=== PATIENT | female | born 1940 | race Caucasian/White ===

== ENCOUNTER 2016-11-08 22:31 | Emergency (ER) | payer OTHER, BC ==
[~2016-11-08] VITALS: Ht 165.1 cm; Wt 104.5 kg
[~2016-11-08 22:31] MED LIST: ACTOS30 MG PO; ALEVE LIQUID G220 MG PO; ALEVE220 MG PO; AMLODIPINE BESYL5 MG PO; ASPIR 8181 M1 PO; ASPIR-LOW81 MG PO; ASPIRIN81 M1 PO; Apresoline PO; Aspirin E.C. PO; BACTRIM,SEPT1 TABLET PO; CARVEDILOL3.125 MG PO; CIPRO XR 500 M500 M1 PO; CLEOCIN300 MG PO; COLACE100 MG PO; Colace PO; ELIQUIS5 MG PO; ENDOCET 5-3251 EACH PO; ERGOCALCIF50000 UNIT PO; HUMULIN N100 UNITS/ SC; HUMULIN NP100 UNIT/1 SC; HYDRALAZINE HCL50 MG PO; KEFLEX500 MG PO; LASIX40 MG PO; LISINOPRIL-HCT1 EAC3 PO; LISINOPRIL10 MG PO; LISINOPRIL5 MG PO; Levaquin PO; METFORMIN HCL500 MG PO; OXYCODONE-ACET1 EACH PO; PROMETHAZINE HC25 M1 PO; Silvadene,SSD,Therma TP; Tylenol Regular Stre PO; Vicodin,Norco 5/325 PO; Vitamin D PO; Vitamin D, Drisdol PO; ZESTORETIC,P1 TABLE1 PO; ZOCOR20 MG PO; ZYVOX600 MG PO; Zocor PO
[2016-11-09] LABS: HEMATOCRIT 38.5 % (36.0-46.0); MCH 27.9 PG (29.0-34.0); MCHC 31.7 G/DL (30.0-36.0); MCV 87.9 FL (83-99); MEAN PLAT.VOLUME 12.3 uM^3 (9.5-12.4); PLATELET COUNT 88 K/uL (156-360); RBC DIS.WIDTH-SD 44.8 % (39-53); RED BLOOD COUNT 4.38 M/uL (3.80-5.20); WHITE BLOOD COUNT 7.5 K/uL (4.1-10.2)
[2016-11-09 00:10] LABS: CHLORIDE 105 mEq/L (99-109); POTASSIUM 4.1 mEq/L (3.7-5.4); SODIUM 136 mEq/L (136-147)
[2016-11-09 00:12] LABS: GLUCOSE 259 mg/dL (70-99)
[2016-11-09 00:13] LABS: ANION GAP 10 MEQ/L (2-14)
[2016-11-09 00:14] LABS: TOTAL BILIRUBIN 1.4 mg/dL (0.0-1.0)
[2016-11-09 00:16] LABS: ALKALINE PHOSPHATASE 129 IU/L (3-129); GFR ESTIMATE (CALCULATED) 31 mL/min/
[2016-11-09 00:17] LABS: UREA NITROGEN (BUN) 24 mg/dL (9-23)
[2016-11-09 01:16] LABS: ADD MIUA? YES; BILIRUBIN NEGATIVE; BLOOD LARGE; COLOR YELLOW ((YELLOW)); GLUCOSE (STRIP) >=500; KETONES NEGATIVE; LEUKOCYTES LARGE; NITRITE NEGATIVE; PROTEIN (STRIP) 100; UROBILINOGEN 0.2 MG/DL (0.2-1.0)
[2016-11-09 01:34] LABS: BACTERIA RARE /HPF; EPITHELIAL CELLS NONE SEEN /HPF; MUCUS NONE SEEN /LPF; UCUL ADDED? YES; WHITE BLOOD CELLS TNTC /HPF (0-5)
[2016-11-09] MEDS ORDERED: ZOFRAN4 MG PO (02:46)
[2016-11-09] MEDS ORDERED: LEVAQUIN750 MG PO (02:46)
[2016-11-09] MEDS ORDERED: PERCOCET 5/31 TABLET PO (02:47)
[2016-11-09 03:43] VITALS: BP 164/83
[2016-11-10] MEDS ORDERED: HYDROXYCHLOROQ200 MG PO (00:35)
[2016-11-10] MEDS ORDERED: ALLEGRA-D 241 TABLET PO (00:36)
[2016-11-10] MEDS ORDERED: ADVIL200 MG PO (00:36)
[2016-11-10] MEDS ORDERED: LEVOFLOXACIN750 MG PO (00:38)
== END 2016-11-09 04:14 | disposition home or self-care (01) ==
LOC: EME 22:31
PROVIDERS: Nurse Practitioner Family
DX: N10 Acute pyelonephritis (principal); E11.40 Type 2 diabetes mellitus with diabetic neuropathy, unspecified; E78.5 Hyperlipidemia, unspecified; I10 Essential (primary) hypertension; F32.9 Major depressive disorder, single episode, unspecified; Z79.01 Long term (current) use of anticoagulants; Z79.4 Long term (current) use of insulin; M54.5 Low back pain
CPT/HCPCS: 74176; 80053; 81003; 83605; 85027; 87040; 87077; 87086; 87186; 87801; 99281; 99285; J0696; J1885; J2270; J2405; J7050

== ENCOUNTER 2016-11-09 22:18 | Inpatient (IN) | payer OTHER, BC ==
[~2016-11-09] VITALS: Ht 162.6 cm; Wt 112.2 kg
[~2016-11-09 22:18] MED LIST changes: +LEVAQUIN750 MG PO; +PERCOCET 5/31 TABLET PO; +ZOFRAN4 MG PO
[2016-11-09 23:34] LABS: HEMATOCRIT 34.2 % (36.0-46.0); MCH 28.2 PG (29.0-34.0); MCHC 31.3 G/DL (30.0-36.0); MEAN PLAT.VOLUME 12.6 uM^3 (9.5-12.4); PLATELET COUNT 80 K/uL (156-360); RBC DIS.WIDTH-CV 14.3 % (11.8-14.6); RBC DIS.WIDTH-SD 46.7 % (39-53); WHITE BLOOD COUNT 9.5 K/uL (4.1-10.2)
[2016-11-09 23:42] LABS: CHLORIDE 103 mEq/L (99-109); POTASSIUM 4.5 mEq/L (3.7-5.4); SODIUM 136 mEq/L (136-147)
[2016-11-09 23:44] LABS: GLUCOSE 163 mg/dL (70-99)
[2016-11-09 23:45] LABS: ANION GAP 11 MEQ/L (2-14)
[2016-11-09 23:46] LABS: TOTAL BILIRUBIN 1.5 mg/dL (0.0-1.0)
[2016-11-09 23:47] LABS: ALKALINE PHOSPHATASE 105 IU/L (3-129)
[2016-11-09 23:48] LABS: GFR ESTIMATE (CALCULATED) 27 mL/min/
[2016-11-09 23:49] LABS: UREA NITROGEN (BUN) 31 mg/dL (9-23)
[2016-11-09 23:51] LABS: CREATINE KINASE 85 IU/L (1-294); LIPASE 5 U/L (1.0-51.0); TOTAL CK 85 IU/L (1-294)
[2016-11-09 23:59] LABS: CK-MB 1.2 ng/mL (0.0-4.9)
[2016-11-10 00:16] LABS: ADD MIUA? YES; BILIRUBIN NEGATIVE; BLOOD MODERATE; COLOR YELLOW ((YELLOW)); GLUCOSE (STRIP) 50; KETONES NEGATIVE; LEUKOCYTES LARGE; NITRITE NEGATIVE; PROTEIN (STRIP) >=500; SPECIFIC GRAVITY 1.014 (1.000-1.030); UROBILINOGEN 0.2 MG/DL (0.2-1.0)
[2016-11-10] MEDS ORDERED: HYDROXYCHLOROQ200 MG PO (00:35)
[2016-11-10] MEDS ORDERED: ADVIL200 MG PO (00:36)
[2016-11-10] MEDS ORDERED: ALLEGRA-D 241 TABLET PO (00:36)
[2016-11-10] MEDS ORDERED: LEVOFLOXACIN750 MG PO (00:38)
[2016-11-10 01:08] LABS: WHITE BLOOD CELLS TNTC /HPF (0-5)
[2016-11-10 01:11] LABS: BACTERIA 1+ /HPF; EPITHELIAL CELLS 1+ /HPF; MUCUS 1+ /LPF; UCUL ADDED? YES
[2016-11-10 04:19] VITALS: BP 135/63
[2016-11-10 06:43] LABS: POINT-OF-CARE METER ID UU14162508
[2016-11-10 07:48] VITALS: BP 145/83
[2016-11-10 08:25] LABS: HEMATOCRIT 32.3 % (36.0-46.0); MCH 28.6 PG (29.0-34.0); MCHC 31.6 G/DL (30.0-36.0); MCV 90.5 FL (83-99); MEAN PLAT.VOLUME 12.4 uM^3 (9.5-12.4); PLATELET COUNT 79 K/uL (156-360); RBC DIS.WIDTH-CV 14.5 % (11.8-14.6); RBC DIS.WIDTH-SD 47.7 % (39-53); RED BLOOD COUNT 3.57 M/uL (3.80-5.20); WHITE BLOOD COUNT 7.1 K/uL (4.1-10.2)
[2016-11-10 08:49] LABS: ANION GAP 7 MEQ/L (2-14); CHLORIDE 103 MEQ/L (99-109); GFR ESTIMATE (CALCULATED) 33 mL/min/; GLUCOSE 154 mg/dL (70-99); POTASSIUM 4.4 MEQ/L (3.7-5.4); SAMPLE HEMOLYSIS CHECK 0; SAMPLE ICTERIC CHECK 0; SAMPLE LIPEMIA CHECK 0; SODIUM 135 MEQ/L (136-147); UREA NITROGEN (BUN) 31 mg/dL (9-23)
[2016-11-10 11:51] VITALS: BP 146/78
[2016-11-10 15:16] VITALS: BP 164/78
[2016-11-10 16:59] LABS: POINT-OF-CARE METER ID UU14162508
[2016-11-10 19:43] VITALS: BP 165/74
[2016-11-10 21:40] LABS: POINT-OF-CARE METER ID UU14162508
[2016-11-10 23:14] VITALS: BP 146/68
[2016-11-11 03:43] VITALS: BP 146/70
[2016-11-11 06:51] LABS: POINT-OF-CARE METER ID UU14162508
[2016-11-11 06:57] LABS: EOSINOPHIL COUNT 0.1 K/uL (0-0.3); HEMATOCRIT 31.9 % (36.0-46.0); IMMATURE GRANULOCYTE (%) 0.2 % (0.0-0.7); INSTRUMENT ABS NEUTROPHIL CT 3.3 K/uL; LYMPHOCYTE COUNT 0.5 K/uL (1.0-2.8); MCH 27.6 PG (29.0-34.0); MCHC 30.4 G/DL (30.0-36.0); MCV 90.9 FL (83-99); MEAN PLAT.VOLUME 12.7 uM^3 (9.5-12.4); MONOCYTE COUNT 0.5 K/uL (0-0.8); NEUTROPHIL (%) 74.2 % (45-76); NEUTROPHIL COUNT 3.3 K/uL (1.8-6.4); PLATELET COUNT 82 K/uL (156-360); RBC DIS.WIDTH-CV 14.3 % (11.8-14.6); RBC DIS.WIDTH-SD 47.5 % (39-53); RED BLOOD COUNT 3.51 M/uL (3.80-5.20)
[2016-11-11 06:58] LABS: WHITE BLOOD COUNT 4.5 K/uL (4.1-10.2)
[2016-11-11 07:00] VITALS: BP 146/66
[2016-11-11 07:36] LABS: ANION GAP 9 MEQ/L (2-14); CHLORIDE 107 MEQ/L (99-109); GFR ESTIMATE (CALCULATED) 39 mL/min/; POTASSIUM 4.2 MEQ/L (3.7-5.4); SAMPLE HEMOLYSIS CHECK 0; SAMPLE ICTERIC CHECK 0; SAMPLE LIPEMIA CHECK 0; SODIUM 138 MEQ/L (136-147); UREA NITROGEN (BUN) 26 mg/dL (9-23)
[2016-11-11 07:41] LABS: GLUCOSE 89 mg/dL (70-99)
[2016-11-11 10:58] VITALS: BP 144/63
[2016-11-11 12:22] LABS: POINT-OF-CARE METER ID UU14162508
[2016-11-11 15:33] VITALS: BP 169/76
[2016-11-11 15:37] LABS: POINT-OF-CARE METER ID UU14162508
[2016-11-11 19:23] VITALS: BP 154/85
[2016-11-11 21:52] LABS: POINT-OF-CARE METER ID UU14162508
[2016-11-11 23:23] VITALS: BP 177/81
[2016-11-12 03:10] VITALS: BP 157/72
[2016-11-12 06:41] LABS: IMMATURE GRANULOCYTE (%) 0.5 % (0.0-0.7); INSTRUMENT ABS NEUTROPHIL CT 2.8 K/uL; LYMPHOCYTE COUNT 0.6 K/uL (1.0-2.8); MCH 28.3 PG (29.0-34.0); MCHC 31.8 G/DL (30.0-36.0); MCV 89.2 FL (83-99); MEAN PLAT.VOLUME 12.4 uM^3 (9.5-12.4); MONOCYTE (%) 14.3 % (3-12); MONOCYTE COUNT 0.6 K/uL (0-0.8); NEUTROPHIL (%) 68.9 % (45-76); NEUTROPHIL COUNT 2.8 K/uL (1.8-6.4); PLATELET COUNT 91 K/uL (156-360); RBC DIS.WIDTH-SD 45.9 % (39-53); RED BLOOD COUNT 3.81 M/uL (3.80-5.20); WHITE BLOOD COUNT 4.1 K/uL (4.1-10.2)
[2016-11-12 07:06] LABS: ANION GAP 9 MEQ/L (2-14); CHLORIDE 103 MEQ/L (99-109); GFR ESTIMATE (CALCULATED) 42 mL/min/; POTASSIUM 4.3 MEQ/L (3.7-5.4); SAMPLE HEMOLYSIS CHECK 0; SAMPLE ICTERIC CHECK 0; SAMPLE LIPEMIA CHECK 0; SODIUM 134 MEQ/L (136-147); UREA NITROGEN (BUN) 21 mg/dL (9-23)
[2016-11-12 07:09] LABS: GLUCOSE 154 mg/dL (70-99)
[2016-11-12 08:00] VITALS: BP 189/79
[2016-11-12 11:26] VITALS: BP 146/66
[2016-11-12 11:38] LABS: POINT-OF-CARE METER ID UU14162508
[2016-11-12 16:00] VITALS: BP 147/75
[2016-11-12 22:39] LABS: POINT-OF-CARE METER ID UU14162508
[2016-11-13 04:01] VITALS: BP 160/72
[2016-11-13 07:03] LABS: EOSINOPHIL (%) 2.5 % (0-5); EOSINOPHIL COUNT 0.1 K/uL (0-0.3); HEMATOCRIT 33.2 % (36.0-46.0); IMMATURE GRANULOCYTE (%) 0.9 % (0.0-0.7); INSTRUMENT ABS NEUTROPHIL CT 2.7 K/uL; LYMPHOCYTE COUNT 0.8 K/uL (1.0-2.8); MCH 27.8 PG (29.0-34.0); MCHC 31.3 G/DL (30.0-36.0); MCV 88.8 FL (83-99); MEAN PLAT.VOLUME 11.7 uM^3 (9.5-12.4); MONOCYTE (%) 15.7 % (3-12); MONOCYTE COUNT 0.7 K/uL (0-0.8); NEUTROPHIL (%) 61.1 % (45-76); NEUTROPHIL COUNT 2.7 K/uL (1.8-6.4); PLATELET COUNT 103 K/uL (156-360); RBC DIS.WIDTH-CV 13.8 % (11.8-14.6); RBC DIS.WIDTH-SD 44.9 % (39-53); RED BLOOD COUNT 3.74 M/uL (3.80-5.20); WHITE BLOOD COUNT 4.4 K/uL (4.1-10.2)
[2016-11-13 07:19] VITALS: BP 131/67
[2016-11-13 07:34] LABS: ANION GAP 6 MEQ/L (2-14); CHLORIDE 106 MEQ/L (99-109); GFR ESTIMATE (CALCULATED) 39 mL/min/; POTASSIUM 3.7 MEQ/L (3.7-5.4); SAMPLE HEMOLYSIS CHECK 0; SAMPLE ICTERIC CHECK 0; SAMPLE LIPEMIA CHECK 0; SODIUM 137 MEQ/L (136-147); UREA NITROGEN (BUN) 20 mg/dL (9-23)
[2016-11-13 07:35] LABS: GLUCOSE 55 mg/dL (70-99)
[2016-11-13 11:47] VITALS: BP 150/69
[2016-11-13 15:46] VITALS: BP 179/83
[2016-11-13 19:21] VITALS: BP 151/72
[2016-11-13 23:14] VITALS: BP 140/71
[2016-11-14 03:22] VITALS: BP 143/78
[2016-11-14 06:40] LABS: BASOPHIL COUNT 0.1 K/uL (0-0.1); EOSINOPHIL (%) 2.5 % (0-5); EOSINOPHIL COUNT 0.1 K/uL (0-0.3); HEMATOCRIT 32.4 % (36.0-46.0); IMMATURE GRANULOCYTE (%) 0.8 % (0.0-0.7); INSTRUMENT ABS NEUTROPHIL CT 3.2 K/uL; LYMPHOCYTE COUNT 0.8 K/uL (1.0-2.8); MCH 27.6 PG (29.0-34.0); MCHC 31.2 G/DL (30.0-36.0); MCV 88.5 FL (83-99); MEAN PLAT.VOLUME 11.8 uM^3 (9.5-12.4); MONOCYTE (%) 13.5 % (3-12); MONOCYTE COUNT 0.7 K/uL (0-0.8); NEUTROPHIL (%) 66.2 % (45-76); NEUTROPHIL COUNT 3.2 K/uL (1.8-6.4); PLATELET COUNT 111 K/uL (156-360); RBC DIS.WIDTH-CV 13.9 % (11.8-14.6); RBC DIS.WIDTH-SD 45.7 % (39-53); RED BLOOD COUNT 3.66 M/uL (3.80-5.20); WHITE BLOOD COUNT 4.9 K/uL (4.1-10.2)
[2016-11-14 07:09] LABS: ANION GAP 7 MEQ/L (2-14); CHLORIDE 106 MEQ/L (99-109); GFR ESTIMATE (CALCULATED) 42 mL/min/; POTASSIUM 4.2 MEQ/L (3.7-5.4); SAMPLE HEMOLYSIS CHECK 0; SAMPLE ICTERIC CHECK 0; SAMPLE LIPEMIA CHECK 0; SODIUM 139 MEQ/L (136-147); UREA NITROGEN (BUN) 20 mg/dL (9-23)
[2016-11-14 07:10] LABS: GLUCOSE 99 mg/dL (70-99)
[2016-11-14 07:30] VITALS: BP 123/63
[2016-11-14 11:45] VITALS: BP 146/82
[2016-11-14 15:45] VITALS: BP 146/63
[2016-11-14 20:01] VITALS: BP 136/71
[2016-11-15 00:18] VITALS: BP 133/70
[2016-11-15 04:19] VITALS: BP 154/64
[2016-11-15] MEDS ORDERED: CIPRO500 MG PO (14:51)
[2016-11-15 15:35] VITALS: BP 159/72
[2016-11-15 16:51] VITALS: BP 159/72
[2016-11-15 16:57] LABS: POINT-OF-CARE METER ID UU14162508
== END 2016-11-15 19:51 | disposition home health service (06) | DRG 690 ==
LOC: EME 22:18 → 2EAST 11-10 00:44 → EDOF 11-10 00:44 → 2EAST 11-10 01:46
PROVIDERS: Emergency Medicine; Family Medicine
DX: N10 Acute pyelonephritis (principal); N17.9 Acute kidney failure, unspecified; E11.22 Type 2 diabetes mellitus with diabetic chronic kidney disease; L97.819 Non-pressure chronic ulcer of other part of right lower leg with unspecified severity; G62.9 Polyneuropathy, unspecified; E66.01 Morbid (severe) obesity due to excess calories; I10 Essential (primary) hypertension; I12.9 Hypertensive chronic kidney disease with stage 1 through stage 4 chronic kidney disease, or unspecified chronic kidney disease; N18.9 Chronic kidney disease, unspecified; E78.5 Hyperlipidemia, unspecified; Z68.37 Body mass index [BMI] 37.0-37.9, adult; I87.8 Other specified disorders of veins; I89.0 Lymphedema, not elsewhere classified; H10.9 Unspecified conjunctivitis; D64.9 Anemia, unspecified; F32.9 Major depressive disorder, single episode, unspecified; M19.90 Unspecified osteoarthritis, unspecified site; F40.240 Claustrophobia; Z90.49 Acquired absence of other specified parts of digestive tract; K42.9 Umbilical hernia without obstruction or gangrene; Z86.73 Personal history of transient ischemic attack (TIA), and cerebral infarction without residual deficits
CPT/HCPCS: 74176; 76770; 80048; 80053; 81003; 82550; 82553; 82948; 83605; 83690; 85025; 85027; 87040; 87077; 87086; 87186; 87801; 94799; 99281; 99285; J0696; J0744; J1815; J1885; J2270; J2405; J7030; J7050

== ENCOUNTER 2017-08-17 11:09 | Inpatient (IN) | payer OTHER, BC ==
[~2017-08-17] VITALS: Ht 165.1 cm; Wt 107.0 kg
[~2017-08-17 11:09] MED LIST changes: +ADVIL200 MG PO; +ALLEGRA-D 241 TABLET PO; +CIPRO500 MG PO; +HYDROXYCHLOROQ200 MG PO; +LEVOFLOXACIN750 MG PO
[2017-08-17 12:36] LABS: BASOPHIL (%) 0.8 % (0-1); EOSINOPHIL (%) 2.6 % (0-5); EOSINOPHIL COUNT 0.1 K/uL (0-0.3); HEMATOCRIT 32.9 % (36.0-46.0); HEMOGLOBIN 10.5 G/DL (11.9-15.5); IMMATURE GRANULOCYTE (%) 0.3 % (0.0-0.7); LYMPHOCYTE (%) 11.3 % (15-42); LYMPHOCYTE COUNT 0.4 K/uL (1.0-2.8); MCH 28.6 PG (29.0-34.0); MCHC 31.9 G/DL (30.0-36.0); MCV 89.6 FL (83-99); MONOCYTE (%) 7.9 % (3-12); MONOCYTE COUNT 0.3 K/uL (0-0.8); NEUTROPHIL (%) 77.1 % (45-76); PLATELET COUNT 92 K/uL (156-360); RBC DIS.WIDTH-CV 15.1 % (11.8-14.6); RBC DIS.WIDTH-SD 49.6 % (39-53); RED BLOOD COUNT 3.67 M/uL (3.80-5.20); WHITE BLOOD COUNT 3.9 K/uL (4.1-10.2)
[2017-08-17 12:49] LABS: INTER. NORMALIZED RATIO 2.1
[2017-08-17 12:51] LABS: CHLORIDE 108 mEq/L (99-109); POTASSIUM 4.1 mEq/L (3.7-5.4); PTT 34.7 SEC (25-37); SODIUM 137 mEq/L (136-147)
[2017-08-17 12:52] LABS: MAGNESIUM 1.7 mg/dL (1.3-2.7)
[2017-08-17 12:53] LABS: GLUCOSE 178 mg/dL (70-99)
[2017-08-17 12:57] LABS: CREATININE 1.3 mg/dL (0.6-1.3); GFR ESTIMATE (CALCULATED) 42 mL/min/
[2017-08-17 12:58] LABS: UREA NITROGEN (BUN) 21 mg/dL (9-23)
[2017-08-17 13:03] LABS: TROP-I INTERPRETATION NEGATIVE; TROPONIN-I 0.01 ng/mL (0.0-0.30)
[2017-08-17 14:10] LABS: ALBUMIN 3.3 g/dL (3.2-4.8)
[2017-08-17 18:03] LABS: TROP-I INTERPRETATION NEGATIVE; TROPONIN-I 0.02 ng/mL (0.0-0.30)
[2017-08-17 22:00] VITALS: BP 132/78
[2017-08-17 22:15] VITALS: BP 132/78
[2017-08-18] VITALS (7 sets, daily range): BP systolic 133–1436; BP diastolic 61–73
[2017-08-18 05:12] LABS: HEMATOCRIT 32.7 % (36.0-46.0); HEMOGLOBIN 10.2 G/DL (11.9-15.5); MCH 28.1 PG (29.0-34.0); MCHC 31.2 G/DL (30.0-36.0); MCV 90.1 FL (83-99); PLATELET COUNT 95 K/uL (156-360); RBC DIS.WIDTH-CV 15.2 % (11.8-14.6); RBC DIS.WIDTH-SD 50.2 % (39-53); RED BLOOD COUNT 3.63 M/uL (3.80-5.20); WHITE BLOOD COUNT 3.5 K/uL (4.1-10.2)
[2017-08-18 05:32] LABS: TROP-I INTERPRETATION NEGATIVE; TROPONIN-I 0.02 ng/mL (0.0-0.30)
[2017-08-18 14:50] LABS: CHLORIDE 103 MEQ/L (99-109); CREATININE 1.4 MG/DL (0.6-1.3); GFR ESTIMATE (CALCULATED) 39 mL/min/; GLUCOSE 190 mg/dL (70-99); SODIUM 139 MEQ/L (136-147); UREA NITROGEN (BUN) 20 mg/dL (9-23)
[2017-08-19 03:30] VITALS: BP 140/64
[2017-08-19 05:44] LABS: CHLORIDE 103 MEQ/L (99-109); CREATININE 1.6 MG/DL (0.6-1.3); GFR ESTIMATE (CALCULATED) 33 mL/min/; GLUCOSE 172 mg/dL (70-99); POTASSIUM 3.9 MEQ/L (3.7-5.4); SODIUM 137 MEQ/L (136-147); UREA NITROGEN (BUN) 24 mg/dL (9-23)
[2017-08-19 07:16] VITALS: BP 156/68
[2017-08-19 11:07] VITALS: BP 151/75
[2017-08-19 15:17] VITALS: BP 148/73
[2017-08-19 19:30] VITALS: BP 167/72
[2017-08-19 23:30] VITALS: BP 141/63
[2017-08-20 03:30] VITALS: BP 152/72
[2017-08-20 05:53] LABS: BASOPHIL (%) 1.1 % (0-1); EOSINOPHIL COUNT 0.1 K/uL (0-0.3); HEMATOCRIT 33.2 % (36.0-46.0); HEMOGLOBIN 10.3 G/DL (11.9-15.5); IMMATURE GRANULOCYTE (%) 0.3 % (0.0-0.7); LYMPHOCYTE (%) 16.5 % (15-42); LYMPHOCYTE COUNT 0.6 K/uL (1.0-2.8); MCH 27.8 PG (29.0-34.0); MCV 89.7 FL (83-99); MONOCYTE (%) 13.2 % (3-12); MONOCYTE COUNT 0.5 K/uL (0-0.8); NEUTROPHIL (%) 65.9 % (45-76); NEUTROPHIL COUNT 2.4 K/uL (1.8-6.4); PLATELET COUNT 92 K/uL (156-360); RBC DIS.WIDTH-CV 15.2 % (11.8-14.6); RBC DIS.WIDTH-SD 49.7 % (39-53); WHITE BLOOD COUNT 3.7 K/uL (4.1-10.2)
[2017-08-20 06:18] LABS: CHLORIDE 102 MEQ/L (99-109); CREATININE 1.4 MG/DL (0.6-1.3); GFR ESTIMATE (CALCULATED) 39 mL/min/; GLUCOSE 168 mg/dL (70-99); POTASSIUM 3.7 MEQ/L (3.7-5.4); SODIUM 138 MEQ/L (136-147); UREA NITROGEN (BUN) 23 mg/dL (9-23)
[2017-08-20 08:00] VITALS: BP 146/72
[2017-08-20 11:45] VITALS: BP 133/65
[2017-08-20 15:00] VITALS: BP 135/60
[2017-08-20 20:00] VITALS: BP 131/82
[2017-08-21 03:07] VITALS: BP 148/68
[2017-08-21 06:16] LABS: CHLORIDE 102 MEQ/L (99-109); CREATININE 1.3 MG/DL (0.6-1.3); GFR ESTIMATE (CALCULATED) 42 mL/min/; GLUCOSE 207 mg/dL (70-99); POTASSIUM 4.1 MEQ/L (3.7-5.4); SODIUM 137 MEQ/L (136-147); UREA NITROGEN (BUN) 25 mg/dL (9-23)
[2017-08-21 06:19] LABS: BASOPHIL (%) 0.8 % (0-1); EOSINOPHIL (%) 3.2 % (0-5); EOSINOPHIL COUNT 0.1 K/uL (0-0.3); HEMATOCRIT 32.4 % (36.0-46.0); HEMOGLOBIN 9.9 G/DL (11.9-15.5); IMMATURE GRANULOCYTE (%) 0.3 % (0.0-0.7); LYMPHOCYTE (%) 15.1 % (15-42); LYMPHOCYTE COUNT 0.6 K/uL (1.0-2.8); MCH 27.7 PG (29.0-34.0); MCHC 30.6 G/DL (30.0-36.0); MCV 90.5 FL (83-99); MONOCYTE (%) 10.8 % (3-12); MONOCYTE COUNT 0.4 K/uL (0-0.8); NEUTROPHIL (%) 69.8 % (45-76); NEUTROPHIL COUNT 2.6 K/uL (1.8-6.4); PLATELET COUNT 96 K/uL (156-360); RBC DIS.WIDTH-CV 14.9 % (11.8-14.6); RBC DIS.WIDTH-SD 49.7 % (39-53); RED BLOOD COUNT 3.58 M/uL (3.80-5.20); WHITE BLOOD COUNT 3.7 K/uL (4.1-10.2)
[2017-08-21 08:00] VITALS: BP 163/70
[2017-08-21 12:00] VITALS: BP 156/64
[2017-08-21 16:00] VITALS: BP 145/62
[2017-08-21 20:18] VITALS: BP 163/71
[2017-08-22 01:03] VITALS: BP 155/72
[2017-08-22 05:41] VITALS: BP 144/71
[2017-08-22 06:06] LABS: CHLORIDE 101 MEQ/L (99-109); CREATININE 1.3 MG/DL (0.6-1.3); GFR ESTIMATE (CALCULATED) 42 mL/min/; GLUCOSE 202 mg/dL (70-99); POTASSIUM 4.1 MEQ/L (3.7-5.4); SODIUM 135 MEQ/L (136-147); UREA NITROGEN (BUN) 22 mg/dL (9-23)
[2017-08-22 07:30] VITALS: BP 139/58
[2017-08-22 12:15] VITALS: BP 132/60
[2017-08-22 17:19] VITALS: BP 151/68
[2017-08-22 20:30] VITALS: BP 138/65
[2017-08-23] VITALS (7 sets, daily range): BP systolic 138–155; BP diastolic 63–70
[2017-08-23 01:44] LABS: APPEARANCE CLOUDY ((CLEAR)); BILIRUBIN NEGATIVE; BLOOD MODERATE; COLOR YELLOW ((YELLOW)); GLUCOSE (STRIP) 150; KETONES NEGATIVE; LEUKOCYTES LARGE; NITRITE POSITIVE; PROTEIN (STRIP) 30; SPECIFIC GRAVITY 1.006 (1.000-1.030); UROBILINOGEN 0.2 MG/DL (0.2-1.0)
[2017-08-23 01:59] LABS: BACTERIA 2+ /HPF; EPITHELIAL CELLS RARE /HPF; MUCUS RARE /LPF; RED BLOOD CELLS 20-30 /HPF (0-5); WHITE BLOOD CELLS TNTC /HPF (0-5)
[2017-08-23 05:44] LABS: CHLORIDE 102 MEQ/L (99-109); CREATININE 1.5 MG/DL (0.6-1.3); GFR ESTIMATE (CALCULATED) 36 mL/min/; GLUCOSE 160 mg/dL (70-99); POTASSIUM 4.8 MEQ/L (3.7-5.4); SODIUM 136 MEQ/L (136-147); UREA NITROGEN (BUN) 26 mg/dL (9-23)
[2017-08-24 05:04] VITALS: BP 134/63
[2017-08-24 07:35] LABS: CHLORIDE 102 MEQ/L (99-109); CREATININE 1.5 MG/DL (0.6-1.3); GFR ESTIMATE (CALCULATED) 36 mL/min/; GLUCOSE 167 mg/dL (70-99); POTASSIUM 4.3 MEQ/L (3.7-5.4); SODIUM 137 MEQ/L (136-147); UREA NITROGEN (BUN) 28 mg/dL (9-23)
[2017-08-24 08:18] VITALS: BP 128/61
[2017-08-24 12:04] VITALS: BP 127/59
[2017-08-24 15:50] VITALS: BP 143/66
[2017-08-24 19:42] VITALS: BP 131/64
[2017-08-24 23:31] VITALS: BP 138/65
[2017-08-25 05:02] VITALS: BP 144/62
[2017-08-25 05:49] LABS: CHLORIDE 100 MEQ/L (99-109); CREATININE 1.5 MG/DL (0.6-1.3); GFR ESTIMATE (CALCULATED) 36 mL/min/; GLUCOSE 216 mg/dL (70-99); POTASSIUM 4.3 MEQ/L (3.7-5.4); SODIUM 135 MEQ/L (136-147); UREA NITROGEN (BUN) 37 mg/dL (9-23)
[2017-08-25 07:57] VITALS: BP 158/86
[2017-08-25 11:07] VITALS: BP 122/58
[2017-08-25 14:50] VITALS: BP 123/86
[2017-08-25 21:00] VITALS: BP 145/85
[2017-08-25 23:47] VITALS: BP 155/88
[2017-08-26 04:00] VITALS: BP 120/87
[2017-08-26 06:01] LABS: CHLORIDE 100 MEQ/L (99-109); CREATININE 1.7 MG/DL (0.6-1.3); GFR ESTIMATE (CALCULATED) 31 mL/min/; GLUCOSE 189 mg/dL (70-99); POTASSIUM 4.4 MEQ/L (3.7-5.4); SODIUM 138 MEQ/L (136-147); UREA NITROGEN (BUN) 40 mg/dL (9-23)
[2017-08-26 08:25] VITALS: BP 131/60
[2017-08-26 09:55] LABS: INTER. NORMALIZED RATIO 1.2
[2017-08-26 12:51] LABS: BICARBONATE 26.5 mEq/L (22-26); CARBOXY HGB 2.4 % (0-5); METHEMOGLOBIN 1.2 % (0-1.5); PCO2 40 mm Hg (35-45); PO2 87 mm Hg (80-100); pH 7.43 (7.35-7.45)
[2017-08-26 12:52] LABS: SITE AO
[2017-08-26 12:53] LABS: COMMENTS - BLOOD GASES C+
[2017-08-26 12:57] LABS: BASE EXCESS 2.6 mEq/L (-3 to +3); BICARBONATE 28.4 mEq/L (22-26); COMMENTS - BLOOD GASES C+; METHEMOGLOBIN 1.9 % (0-1.5); PCO2 48 mm Hg (35-45); PO2 38 mm Hg (80-100); SITE PA; pH 7.38 (7.35-7.45)
[2017-08-26 15:45] VITALS: BP 128/58
[2017-08-26 16:45] VITALS: BP 139/86
[2017-08-26 18:53] VITALS: BP 125/58
[2017-08-27] VITALS (7 sets, daily range): BP systolic 127–153; BP diastolic 58–77
[2017-08-27 06:10] LABS: CHLORIDE 103 MEQ/L (99-109); CREATININE 1.4 MG/DL (0.6-1.3); GFR ESTIMATE (CALCULATED) 39 mL/min/; GLUCOSE 137 mg/dL (70-99); POTASSIUM 4.2 MEQ/L (3.7-5.4); SODIUM 137 MEQ/L (136-147); UREA NITROGEN (BUN) 31 mg/dL (9-23)
[2017-08-28 03:52] VITALS: BP 121/55
[2017-08-28 08:55] VITALS: BP 146/70
[2017-08-28 10:53] LABS: SCL-70 (SCLERODERMA) ANTIBODY 51 U/mL (0-99)
[2017-08-28 11:29] LABS: CHLORIDE 98 MEQ/L (99-109); CREATININE 1.7 MG/DL (0.6-1.3); GFR ESTIMATE (CALCULATED) 31 mL/min/; GLUCOSE 216 mg/dL (70-99); POTASSIUM 4.4 MEQ/L (3.7-5.4); SODIUM 137 MEQ/L (136-147); UREA NITROGEN (BUN) 32 mg/dL (9-23)
[2017-08-28 11:35] VITALS: BP 125/56
[2017-08-28] MEDS ORDERED: LISINOPRIL20 MG PO (12:33)
[2017-08-28] MEDS ORDERED: ONDANSETRON ODT4 MG PO (12:34)
[2017-08-28] MEDS ORDERED: FUROSEMIDE20 MG PO (12:34)
[2017-08-28] MEDS ORDERED: DOCUSATE SODIU100 MG PO (12:34)
[2017-08-28] MEDS ORDERED: ENDOCET 5-3251 EACH PO (12:35)
[2017-08-28] MEDS ORDERED: NOVOLOG 10100 UNITS/ SC (12:35)
[2017-08-28 14:14] VITALS: BP 133/74
[2017-08-30 13:13] LABS: Neutrophil Cytoplasmic Aby Negative (Negative)
== END 2017-08-28 14:49 | DRG 286 ==
LOC: EME 11:09 → 4EAST 13:26 → EDOF 13:26 → ENRESERV 13:42 → EDOF 14:04 → ENRESERV 19:53 → 4EAST 21:31
PROVIDERS: Emergency Medicine; Family Medicine; Internal Medicine Pulmonary Disease; Physician Assistant Medical
PROC: 4A023N8 Measurement of Cardiac Sampling and Pressure, Bilateral, Percutaneous Approach (ICD-10-PCS; principal; 2017-08-26)
PROC: B2111ZZ Fluoroscopy of Multiple Coronary Arteries using Low Osmolar Contrast (ICD-10-PCS; principal; 2017-08-26)
PROC: B2161ZZ Fluoroscopy of Right and Left Heart using Low Osmolar Contrast (ICD-10-PCS; principal; 2017-08-26)
DX: I50.33 Acute on chronic diastolic (congestive) heart failure (principal); J96.01 Acute respiratory failure with hypoxia; I25.10 Atherosclerotic heart disease of native coronary artery without angina pectoris; I27.20 Pulmonary hypertension, unspecified; I48.2 Chronic atrial fibrillation; I34.0 Nonrheumatic mitral (valve) insufficiency; I83.009 Varicose veins of unspecified lower extremity with ulcer of unspecified site; I11.0 Hypertensive heart disease with heart failure; E66.01 Morbid (severe) obesity due to excess calories; E11.40 Type 2 diabetes mellitus with diabetic neuropathy, unspecified; Z68.41 Body mass index [BMI] 40.0-44.9, adult; E11.622 Type 2 diabetes mellitus with other skin ulcer; M32.9 Systemic lupus erythematosus, unspecified; L97.919 Non-pressure chronic ulcer of unspecified part of right lower leg with unspecified severity; E78.5 Hyperlipidemia, unspecified; M19.90 Unspecified osteoarthritis, unspecified site; L03.90 Cellulitis, unspecified; K59.00 Constipation, unspecified; B88.8 Other specified infestations; M06.9 Rheumatoid arthritis, unspecified; K42.9 Umbilical hernia without obstruction or gangrene; Z86.73 Personal history of transient ischemic attack (TIA), and cerebral infarction without residual deficits; R55 Syncope and collapse; F32.9 Major depressive disorder, single episode, unspecified; Z82.0 Family history of epilepsy and other diseases of the nervous system; Z79.4 Long term (current) use of insulin; Z79.01 Long term (current) use of anticoagulants; Z82.49 Family history of ischemic heart disease and other diseases of the circulatory system; Z90.49 Acquired absence of other specified parts of digestive tract
CPT/HCPCS: 36600; 71045; 71275; 74177; 80048; 80069; 81003; 82803; 82948; 83735; 83880; 84484; 85025; 85027; 85610; 85730; 86021 90; 86038; 86215 90; 86235; 86430; 93005; 93306; 94640; 94799; 97530 GO; 99281; 99285; C1760; C1769; C1887; C1894; J1644; J1815; J1940; J2250; J2405; J3010

== ENCOUNTER 2017-09-03 19:44 | Inpatient (IN) | payer OTHER, BC ==
[~2017-09-03] VITALS: Ht 165.1 cm; Wt 105.4 kg
[~2017-09-03 19:44] MED LIST changes: +DOCUSATE SODIU100 MG PO; +FUROSEMIDE20 MG PO; +LISINOPRIL20 MG PO; +NOVOLOG 10100 UNITS/ SC; +ONDANSETRON ODT4 MG PO
[2017-09-03 21:24] LABS: HEMATOCRIT 33.5 % (36.0-46.0); HEMOGLOBIN 10.9 G/DL (11.9-15.5); MCH 27.9 PG (29.0-34.0); MCHC 32.5 G/DL (30.0-36.0); MCV 85.7 FL (83-99); PLATELET COUNT 224 K/uL (156-360); RBC DIS.WIDTH-CV 15.3 % (11.8-14.6); RBC DIS.WIDTH-SD 48.1 % (39-53); RED BLOOD COUNT 3.91 M/uL (3.80-5.20); WHITE BLOOD COUNT 12.2 K/uL (4.1-10.2)
[2017-09-03 21:29] LABS: CHLORIDE 98 mEq/L (99-109); POTASSIUM 4.9 mEq/L (3.7-5.4); SODIUM 131 mEq/L (136-147)
[2017-09-03 21:31] LABS: GLUCOSE 107 mg/dL (70-99)
[2017-09-03 21:35] LABS: GFR ESTIMATE (CALCULATED) 20 mL/min/
[2017-09-03 21:43] LABS: CREATININE 2.5 mg/dL (0.6-1.3); UREA NITROGEN (BUN) 57 mg/dL (9-23)
[2017-09-03 22:22] LABS: TROP-I INTERPRETATION NEGATIVE; TROPONIN-I 0.02 ng/mL (0.0-0.30)
[2017-09-03 22:54] LABS: INTER. NORMALIZED RATIO 3.2
[2017-09-03 22:56] LABS: PTT 35.7 SEC (25-37)
[2017-09-04 00:54] LABS: APPEARANCE CLOUDY ((CLEAR)); BILIRUBIN NEGATIVE; BLOOD NEGATIVE; COLOR AMBER ((YELLOW)); GLUCOSE (STRIP) NEGATIVE; KETONES NEGATIVE; LEUKOCYTES LARGE; NITRITE NEGATIVE; PROTEIN (STRIP) 30; UROBILINOGEN 0.2 MG/DL (0.2-1.0)
[2017-09-04 01:26] LABS: RED BLOOD CELLS 0-5 /HPF (0-5); WHITE BLOOD CELLS TNTC /HPF (0-5)
[2017-09-04 01:27] LABS: BACTERIA 3+ /HPF; EPITHELIAL CELLS 1+ /HPF; MUCUS NONE SEEN /LPF; UCUL ADDED? YES
[2017-09-04] MEDS ORDERED: LIPITOR10 MG PO (01:49)
[2017-09-04] MEDS ORDERED: NOVOLOG PE100 UNITS/ SC (02:02)
[2017-09-04] MEDS ORDERED: TYLENOL REGULA325 MG PO (02:04)
[2017-09-04 03:24] VITALS: BP 123/56
[2017-09-04 06:45] VITALS: BP 133/60
[2017-09-04 10:54] VITALS: BP 113/59
[2017-09-04 15:01] VITALS: BP 104/59
[2017-09-04 17:02] LABS: UR CREATININE CONCENTRATION 169.4 MG/DL
[2017-09-04 19:45] VITALS: BP 103/52
[2017-09-04 23:26] VITALS: BP 112/55
[2017-09-05 04:05] VITALS: BP 115/61
[2017-09-05 06:36] LABS: ALBUMIN 2.3 G/DL (3.2-4.8); CHLORIDE 94 MEQ/L (99-109); CREATININE 2.5 MG/DL (0.6-1.3); GFR ESTIMATE (CALCULATED) 20 mL/min/; GLUCOSE 91 mg/dL (70-99); PHOSPHORUS 4.4 mg/dL (2.5-4.9); POTASSIUM 4.8 MEQ/L (3.7-5.4); SODIUM 128 MEQ/L (136-147); UREA NITROGEN (BUN) 68 mg/dL (9-23)
[2017-09-05 07:24] VITALS: BP 122/62
[2017-09-05 11:33] VITALS: BP 119/57
[2017-09-05 12:31] LABS: APPEARANCE HAZY-YELLOW; MONONUCLEAR WBC'S 1 %; POLYNUCLEAR WBC'S 99 % (0-25); RED CELL COUNT 16000 /MM^3 (0-1); SYNOVIAL FLUID EOSINOPHILS 0 % (0-25); WHITE CELL COUNT 95840 /MM^3 (0-200.0)
[2017-09-05 15:15] VITALS: BP 125/58
[2017-09-05 18:15] VITALS: BP 143/85
[2017-09-06] VITALS (19 sets, daily range): BP systolic 91–130; BP diastolic 50–73
[2017-09-06 06:03] LABS: BASOPHIL (%) 0.3 % (0-1); EOSINOPHIL (%) 0.3 % (0-5); HEMATOCRIT 29.4 % (36.0-46.0); HEMOGLOBIN 9.5 G/DL (11.9-15.5); IMMATURE GRANULOCYTE (%) 0.8 % (0.0-0.7); LYMPHOCYTE (%) 5.3 % (15-42); LYMPHOCYTE COUNT 0.5 K/uL (1.0-2.8); MCH 27.8 PG (29.0-34.0); MCHC 32.3 G/DL (30.0-36.0); MONOCYTE (%) 9.5 % (3-12); MONOCYTE COUNT 0.9 K/uL (0-0.8); NEUTROPHIL (%) 83.8 % (45-76); NEUTROPHIL COUNT 7.5 K/uL (1.8-6.4); PLATELET COUNT 255 K/uL (156-360); RBC DIS.WIDTH-CV 15.6 % (11.8-14.6); RBC DIS.WIDTH-SD 49.3 % (39-53); RED BLOOD COUNT 3.42 M/uL (3.80-5.20)
[2017-09-06 06:38] LABS: ALBUMIN 2.3 G/DL (3.2-4.8); CHLORIDE 93 MEQ/L (99-109); CREATININE 2.1 MG/DL (0.6-1.3); GFR ESTIMATE (CALCULATED) 24 mL/min/; GLUCOSE 114 mg/dL (70-99); PHOSPHORUS 4.4 mg/dL (2.5-4.9); POTASSIUM 4.5 MEQ/L (3.7-5.4); SODIUM 126 MEQ/L (136-147); UREA NITROGEN (BUN) 73 mg/dL (9-23)
[2017-09-07 06:08] LABS: HEMATOCRIT 30.6 % (36.0-46.0); HEMOGLOBIN 9.6 G/DL (11.9-15.5); MCH 26.7 PG (29.0-34.0); MCHC 31.4 G/DL (30.0-36.0); MCV 85.2 FL (83-99); RBC DIS.WIDTH-CV 15.6 % (11.8-14.6); RBC DIS.WIDTH-SD 48.5 % (39-53); RED BLOOD COUNT 3.59 M/uL (3.80-5.20); WHITE BLOOD COUNT 7.9 K/uL (4.1-10.2)
[2017-09-07 06:17] LABS: PLATELET COUNT 340 K/uL (156-360)
[2017-09-07 06:29] LABS: CHLORIDE 97 MEQ/L (99-109); CREATININE 2.1 MG/DL (0.6-1.3); GFR ESTIMATE (CALCULATED) 24 mL/min/; GLUCOSE 133 mg/dL (70-99); POTASSIUM 4.5 MEQ/L (3.7-5.4); SODIUM 131 MEQ/L (136-147); UREA NITROGEN (BUN) 74 mg/dL (9-23)
[2017-09-07 06:31] LABS: ALBUMIN 2.2 G/DL (3.2-4.8); CHLORIDE 97 MEQ/L (99-109); CREATININE 2.2 MG/DL (0.6-1.3); GFR ESTIMATE (CALCULATED) 23 mL/min/; GLUCOSE 134 mg/dL (70-99); PHOSPHORUS 3.9 mg/dL (2.5-4.9); POTASSIUM 4.1 MEQ/L (3.7-5.4); SODIUM 129 MEQ/L (136-147); UREA NITROGEN (BUN) 73 mg/dL (9-23); URIC ACID 9.3 mg/dL (3.1-9.2)
[2017-09-07 06:36] LABS: BASOPHIL (%) 0.8 % (0-1); BASOPHIL COUNT 0.1 K/uL (0-0.1); EOSINOPHIL (%) 1.5 % (0-5); EOSINOPHIL COUNT 0.1 K/uL (0-0.3); IMMATURE GRANULOCYTE (%) 0.8 % (0.0-0.7); LYMPHOCYTE (%) 8.2 % (15-42); LYMPHOCYTE COUNT 0.7 K/uL (1.0-2.8); MONOCYTE (%) 8.7 % (3-12); MONOCYTE COUNT 0.7 K/uL (0-0.8); NEUTROPHIL COUNT 6.3 K/uL (1.8-6.4)
[2017-09-07 07:00] VITALS: BP 114/61
[2017-09-07 11:29] VITALS: BP 122/68
[2017-09-07 15:00] VITALS: BP 131/69
[2017-09-07 20:15] VITALS: BP 124/65
[2017-09-07 22:40] VITALS: BP 121/57
[2017-09-08 06:06] LABS: HEMATOCRIT 30.6 % (36.0-46.0); HEMOGLOBIN 9.7 G/DL (11.9-15.5); MCH 27.3 PG (29.0-34.0); MCHC 31.7 G/DL (30.0-36.0); MCV 86.2 FL (83-99); PLATELET COUNT 354 K/uL (156-360); RBC DIS.WIDTH-CV 16.2 % (11.8-14.6); RBC DIS.WIDTH-SD 51.2 % (39-53); RED BLOOD COUNT 3.55 M/uL (3.80-5.20); WHITE BLOOD COUNT 8.5 K/uL (4.1-10.2)
[2017-09-08 06:30] LABS: ALBUMIN 1.9 G/DL (3.2-4.8); CHLORIDE 99 MEQ/L (99-109); CREATININE 2.2 MG/DL (0.6-1.3); GFR ESTIMATE (CALCULATED) 23 mL/min/; GLUCOSE 140 mg/dL (70-99); POTASSIUM 4.2 MEQ/L (3.7-5.4); SODIUM 133 MEQ/L (136-147); UREA NITROGEN (BUN) 78 mg/dL (9-23)
[2017-09-08 06:32] LABS: BASOPHIL (%) 0.7 % (0-1); BASOPHIL COUNT 0.1 K/uL (0-0.1); EOSINOPHIL (%) 1.8 % (0-5); EOSINOPHIL COUNT 0.2 K/uL (0-0.3); IMMATURE GRANULOCYTE (%) 0.9 % (0.0-0.7); LYMPHOCYTE (%) 10.4 % (15-42); LYMPHOCYTE COUNT 0.9 K/uL (1.0-2.8); MONOCYTE (%) 8.4 % (3-12); MONOCYTE COUNT 0.7 K/uL (0-0.8); NEUTROPHIL (%) 77.8 % (45-76); NEUTROPHIL COUNT 6.6 K/uL (1.8-6.4)
[2017-09-08 06:57] VITALS: BP 130/58
[2017-09-08 15:40] VITALS: BP 119/57
[2017-09-08 23:57] VITALS: BP 137/77; BP 142/76
[2017-09-09 05:37] LABS: BASOPHIL (%) 0.4 % (0-1); EOSINOPHIL (%) 0.7 % (0-5); EOSINOPHIL COUNT 0.1 K/uL (0-0.3); HEMATOCRIT 30.4 % (36.0-46.0); HEMOGLOBIN 9.6 G/DL (11.9-15.5); LYMPHOCYTE (%) 7.1 % (15-42); LYMPHOCYTE COUNT 0.6 K/uL (1.0-2.8); MCH 26.9 PG (29.0-34.0); MCHC 31.6 G/DL (30.0-36.0); MCV 85.2 FL (83-99); MONOCYTE (%) 8.3 % (3-12); MONOCYTE COUNT 0.8 K/uL (0-0.8); NEUTROPHIL (%) 82.5 % (45-76); NEUTROPHIL COUNT 7.5 K/uL (1.8-6.4); PLATELET COUNT 363 K/uL (156-360); RBC DIS.WIDTH-SD 50.4 % (39-53); RED BLOOD COUNT 3.57 M/uL (3.80-5.20)
[2017-09-09 05:59] LABS: ALBUMIN 1.9 G/DL (3.2-4.8); CHLORIDE 100 MEQ/L (99-109); GFR ESTIMATE (CALCULATED) 26 mL/min/; GLUCOSE 174 mg/dL (70-99); PHOSPHORUS 3.8 mg/dL (2.5-4.9); POTASSIUM 4.1 MEQ/L (3.7-5.4); SODIUM 134 MEQ/L (136-147); UREA NITROGEN (BUN) 72 mg/dL (9-23); URIC ACID 9.5 mg/dL (3.1-9.2)
[2017-09-09 08:13] VITALS: BP 126/69
[2017-09-09 16:08] VITALS: BP 134/63
[2017-09-10 00:27] VITALS: BP 131/75
[2017-09-10 06:01] LABS: BASOPHIL (%) 0.5 % (0-1); EOSINOPHIL (%) 1.6 % (0-5); EOSINOPHIL COUNT 0.1 K/uL (0-0.3); HEMATOCRIT 30.2 % (36.0-46.0); HEMOGLOBIN 9.5 G/DL (11.9-15.5); IMMATURE GRANULOCYTE (%) 1.2 % (0.0-0.7); LYMPHOCYTE (%) 7.6 % (15-42); LYMPHOCYTE COUNT 0.6 K/uL (1.0-2.8); MCH 27.2 PG (29.0-34.0); MCHC 31.5 G/DL (30.0-36.0); MCV 86.5 FL (83-99); MONOCYTE (%) 10.8 % (3-12); MONOCYTE COUNT 0.8 K/uL (0-0.8); NEUTROPHIL (%) 78.3 % (45-76); PLATELET COUNT 332 K/uL (156-360); RBC DIS.WIDTH-CV 16.4 % (11.8-14.6); RBC DIS.WIDTH-SD 52.1 % (39-53); RED BLOOD COUNT 3.49 M/uL (3.80-5.20); WHITE BLOOD COUNT 7.7 K/uL (4.1-10.2)
[2017-09-10 06:29] LABS: ALBUMIN 1.9 G/DL (3.2-4.8); CHLORIDE 101 MEQ/L (99-109); CREATININE 1.6 MG/DL (0.6-1.3); GFR ESTIMATE (CALCULATED) 33 mL/min/; GLUCOSE 156 mg/dL (70-99); PHOSPHORUS 3.6 mg/dL (2.5-4.9); POTASSIUM 4.4 MEQ/L (3.7-5.4); SODIUM 136 MEQ/L (136-147); UREA NITROGEN (BUN) 63 mg/dL (9-23)
[2017-09-10 07:16] VITALS: BP 141/77
[2017-09-10 16:48] VITALS: BP 156/82
[2017-09-10 22:55] VITALS: BP 132/60
[2017-09-11 06:59] LABS: ALBUMIN 1.9 G/DL (3.2-4.8); CHLORIDE 101 MEQ/L (99-109); CREATININE 1.4 MG/DL (0.6-1.3); GFR ESTIMATE (CALCULATED) 39 mL/min/; GLUCOSE 163 mg/dL (70-99); PHOSPHORUS 3.3 mg/dL (2.5-4.9); POTASSIUM 4.6 MEQ/L (3.7-5.4); SODIUM 134 MEQ/L (136-147); UREA NITROGEN (BUN) 57 mg/dL (9-23)
[2017-09-11 07:10] VITALS: BP 137/74
[2017-09-11 16:52] VITALS: BP 171/77
[2017-09-11 23:16] VITALS: BP 143/66
[2017-09-12 06:41] LABS: CHLORIDE 98 MEQ/L (99-109); CREATININE 1.4 MG/DL (0.6-1.3); GFR ESTIMATE (CALCULATED) 39 mL/min/; GLUCOSE 170 mg/dL (70-99); POTASSIUM 4.9 MEQ/L (3.7-5.4); SODIUM 133 MEQ/L (136-147); UREA NITROGEN (BUN) 50 mg/dL (9-23)
[2017-09-12 06:53] VITALS: BP 158/72
[2017-09-12] MEDS ORDERED: ANCEF,KEFZOL1 GM IV (13:26)
[2017-09-12] MEDS ORDERED: HYDROCODON-ACE1 EAC7 PO (13:30)
== END 2017-09-12 16:35 | DRG 988 ==
LOC: EME → EDBD 19:44 → EME 19:44 → 4WEST 09-04 02:00 → 5EAST 09-04 02:00 → EDOF 09-04 02:00 → ENRESERV 09-04 02:28 → 5EAST 09-04 03:15 → ENRESERV 09-06 00:18 → 4WEST 09-06 00:53 → ENRESERV 09-06 17:09 → 5EAST 09-06 19:46
PROVIDERS: Emergency Medicine; Family Medicine; Internal Medicine Nephrology; Surgery
DX: N17.0 Acute kidney failure with tubular necrosis (principal); N39.0 Urinary tract infection, site not specified; M00.062 Staphylococcal arthritis, left knee; N18.3 Chronic kidney disease, stage 3 (moderate); I13.0 Hypertensive heart and chronic kidney disease with heart failure and stage 1 through stage 4 chronic kidney disease, or unspecified chronic kidney disease; I48.2 Chronic atrial fibrillation; I27.20 Pulmonary hypertension, unspecified; E11.22 Type 2 diabetes mellitus with diabetic chronic kidney disease; B96.20 Unspecified Escherichia coli [E. coli] as the cause of diseases classified elsewhere; Z86.73 Personal history of transient ischemic attack (TIA), and cerebral infarction without residual deficits; M06.9 Rheumatoid arthritis, unspecified; M32.9 Systemic lupus erythematosus, unspecified; E66.9 Obesity, unspecified; Z68.38 Body mass index [BMI] 38.0-38.9, adult; E78.5 Hyperlipidemia, unspecified; F32.9 Major depressive disorder, single episode, unspecified; E11.40 Type 2 diabetes mellitus with diabetic neuropathy, unspecified; B95.61 Methicillin susceptible Staphylococcus aureus infection as the cause of diseases classified elsewhere; I83.213 Varicose veins of right lower extremity with both ulcer of ankle and inflammation; L97.311 Non-pressure chronic ulcer of right ankle limited to breakdown of skin; N20.0 Calculus of kidney; R06.03 Acute respiratory distress; E87.1 Hypo-osmolality and hyponatremia; I50.30 Unspecified diastolic (congestive) heart failure; M48.061 Spinal stenosis, lumbar region without neurogenic claudication; Z79.01 Long term (current) use of anticoagulants; D64.9 Anemia, unspecified; G89.29 Other chronic pain
CPT/HCPCS: 70450; 71045; 71046; 72158; 73560; 74176; 76937; 80048; 80048 91; 80069; 81003; 82570; 82948; 83605; 83880; 84300; 84484; 84550; 85025; 85027; 85610; 85730; 86850; 86900; 86901; 87040; 87070; 87075; 87077; 87086; 87147; 87186; 87205; 87641; 87801; 88305; 88311; 89051; 89060; 93005; 93306; 93971; 94002; 94799; 97530 GP; 99281; 99285; J0131; J0690; J0696; J1170; J1815; J1940; J2405; J2704; J3010; J7030; J7050; J7120; S0032

== ENCOUNTER 2017-09-20 20:54 | Inpatient (IN) | payer OTHER, BC ==
[~2017-09-20] VITALS: Ht 165.1 cm; Wt 133.2 kg
[~2017-09-20 20:54] MED LIST changes: +ANCEF,KEFZOL1 GM IV; +HUMALOG100 UNIT/1 SC; +HYDROCODON-ACE1 EAC7 PO; +LIPITOR10 MG PO; +TYLENOL REGULA325 MG PO
[2017-09-20 21:22] LABS: HEMATOCRIT 25.6 % (36.0-46.0); HEMOGLOBIN 8.2 G/DL (11.9-15.5); MCH 27.7 PG (29.0-34.0); MCV 86.5 FL (83-99); RBC DIS.WIDTH-CV 16.1 % (11.8-14.6); RBC DIS.WIDTH-SD 50.8 % (39-53); RED BLOOD COUNT 2.96 M/uL (3.80-5.20); WHITE BLOOD COUNT 3.5 K/uL (4.1-10.2)
[2017-09-20 21:25] LABS: ALBUMIN 2.3 g/dL (3.2-4.8); CHLORIDE 93 mEq/L (99-109); SODIUM 122 mEq/L (136-147)
[2017-09-20 21:28] LABS: TOTAL PROTEIN 7.7 g/dL (6.4-8.3)
[2017-09-20 21:29] LABS: TOTAL BILIRUBIN 0.5 mg/dL (0.0-1.0)
[2017-09-20 21:31] LABS: ALKALINE PHOSPHATASE 176 IU/L (3-129); GFR ESTIMATE (CALCULATED) 11 mL/min/
[2017-09-20 21:32] LABS: UREA NITROGEN (BUN) 84 mg/dL (9-23)
[2017-09-20 21:33] LABS: AST (GOT) 23 IU/L (2-34)
[2017-09-20 21:34] LABS: ALT (GPT) < 3 IU/L (3-49)
[2017-09-20 21:37] LABS: CREATININE 4.3 mg/dL (0.6-1.3); GLUCOSE 171 mg/dL (70-99)
[2017-09-20 22:03] LABS: MAGNESIUM 2.1 mg/dL (1.3-2.7)
[2017-09-20 22:08] LABS: PLAT.SUFFICIENCY ADEQUATE; PLATELET COUNT 206 K/uL (156-360)
[2017-09-20 22:21] LABS: TROP-I INTERPRETATION NEGATIVE; TROPONIN-I < 0.01 ng/mL (0.0-0.30)
[2017-09-20] MEDS ORDERED: ANCEF,KEFZOL1 GM IV (23:12)
[2017-09-20] MEDS ORDERED: LISINOPRIL20 MG PO (23:13)
[2017-09-20] MEDS ORDERED: ARTIFICIAL TEAR15 M1 BOTH EYES (23:15)
[2017-09-20] MEDS ORDERED: SALINE NOSE SPR45 M1 BOTH NARES (23:16)
[2017-09-20] MEDS ORDERED: FLEET ENEMA-AD118 ML PR (23:17)
[2017-09-20] MEDS ORDERED: DULCOLAX10 MG PR (23:17)
[2017-09-20] MEDS ORDERED: PHILLIPS'400 MG/5 M PO (23:17)
[2017-09-21] VITALS (14 sets, daily range): BP systolic 103–156; BP diastolic 49–83
[2017-09-21 03:03] LABS: HEMATOCRIT 24.3 % (36.0-46.0); HEMOGLOBIN 7.8 G/DL (11.9-15.5); MCH 27.8 PG (29.0-34.0); MCHC 32.1 G/DL (30.0-36.0); MCV 86.5 FL (83-99); PLATELET COUNT 203 K/uL (156-360); RBC DIS.WIDTH-SD 50.5 % (39-53); RED BLOOD COUNT 2.81 M/uL (3.80-5.20); WHITE BLOOD COUNT 3.2 K/uL (4.1-10.2)
[2017-09-21 03:13] LABS: CHLORIDE 93 mEq/L (99-109); SODIUM 126 mEq/L (136-147)
[2017-09-21 03:18] LABS: CREATININE 4.5 mg/dL (0.6-1.3); GFR ESTIMATE (CALCULATED) 10 mL/min/
[2017-09-21 03:19] LABS: UREA NITROGEN (BUN) 77 mg/dL (9-23)
[2017-09-21 03:22] LABS: GLUCOSE 92 mg/dL (70-99); POTASSIUM 6.6 mEq/L (3.7-5.4)
[2017-09-21 04:12] LABS: STOOL OCCULT BLD 1ST SPECIMEN NEGATIVE
[2017-09-21 04:34] LABS: C DIFF TOXIN NEGATIVE (NEGATIVE)
[2017-09-21 12:19] LABS: HEMATOCRIT 28.4 % (36.0-46.0); HEMOGLOBIN 9.2 G/DL (11.9-15.5); MCV 88.8 FL (83-99)
[2017-09-21 14:25] LABS: INTER. NORMALIZED RATIO 1.9
[2017-09-21 17:38] LABS: APPEARANCE SL.HAZY ((CLEAR)); BILIRUBIN NEGATIVE; BLOOD LARGE; COLOR YELLOW ((YELLOW)); GLUCOSE (STRIP) NEGATIVE; KETONES NEGATIVE; LEUKOCYTES MODERATE; NITRITE NEGATIVE; PROTEIN (STRIP) 100; SPECIFIC GRAVITY 1.016 (1.000-1.030); UROBILINOGEN 0.2 MG/DL (0.2-1.0)
[2017-09-21 17:55] LABS: AMORPHOUS URATES CRYSTALS 1+; BACTERIA 1+ /HPF; EPITHELIAL CELLS RARE /HPF; WHITE BLOOD CELLS 15-20 /HPF (0-5)
[2017-09-21 17:56] LABS: MUCUS TRACE /LPF
[2017-09-21 18:09] LABS: UR CREATININE CONCENTRATION 83.5 MG/DL
[2017-09-21 18:30] LABS: ALBUMIN 2.3 G/DL (3.2-4.8); CHLORIDE 93 MEQ/L (99-109); CREATININE 4.2 MG/DL (0.6-1.3); GFR ESTIMATE (CALCULATED) 11 mL/min/; GLUCOSE 123 mg/dL (70-99); POTASSIUM 5.8 MEQ/L (3.7-5.4); SODIUM 126 MEQ/L (136-147); UREA NITROGEN (BUN) 77 mg/dL (9-23)
[2017-09-21 18:39] LABS: PHOSPHORUS 6.4 mg/dL (2.5-4.9)
[2017-09-22 03:24] VITALS: BP 136/80
[2017-09-22 05:26] LABS: INTER. NORMALIZED RATIO 1.6
[2017-09-22 05:37] LABS: TROP-I INTERPRETATION NEGATIVE; TROPONIN-I 0.01 ng/mL (0.0-0.30)
[2017-09-22 09:07] VITALS: BP 161/71
[2017-09-22 11:53] VITALS: BP 143/65
[2017-09-22 14:32] LABS: APPEARANCE CLOUDY ((CLEAR)); BILIRUBIN NEGATIVE; BLOOD LARGE; COLOR YELLOW ((YELLOW)); GLUCOSE (STRIP) NEGATIVE; KETONES NEGATIVE; LEUKOCYTES SMALL; NITRITE NEGATIVE; PROTEIN (STRIP) 100; SPECIFIC GRAVITY 1.017 (1.000-1.030); UROBILINOGEN 0.2 MG/DL (0.2-1.0)
[2017-09-22 14:44] LABS: BACTERIA RARE /HPF; EPITHELIAL CELLS RARE /HPF; MUCUS NONE SEEN /LPF
[2017-09-22 14:52] LABS: ALBUMIN 2.2 G/DL (3.2-4.8); CHLORIDE 97 MEQ/L (99-109); GFR ESTIMATE (CALCULATED) 12 mL/min/; GLUCOSE 129 mg/dL (70-99); PHOSPHORUS 6.7 mg/dL (2.5-4.9); POTASSIUM 5.1 MEQ/L (3.7-5.4); SODIUM 128 MEQ/L (136-147); UREA NITROGEN (BUN) 75 mg/dL (9-23)
[2017-09-22 15:05] LABS: RED BLOOD CELLS 15-20 /HPF (0-5); WHITE BLOOD CELLS 15-20 /HPF (0-5)
[2017-09-22 16:21] VITALS: BP 146/75
[2017-09-22 19:30] VITALS: BP 158/70
[2017-09-22 22:46] VITALS: BP 164/96
[2017-09-23 03:11] VITALS: BP 158/70
[2017-09-23 06:00] LABS: BASOPHIL (%) 0.9 % (0-1); EOSINOPHIL COUNT 0.1 K/uL (0-0.3); HEMATOCRIT 27.8 % (36.0-46.0); HEMOGLOBIN 8.8 G/DL (11.9-15.5); IMMATURE GRANULOCYTE (%) 0.9 % (0.0-0.7); LYMPHOCYTE (%) 13.3 % (15-42); LYMPHOCYTE COUNT 0.5 K/uL (1.0-2.8); MCH 27.9 PG (29.0-34.0); MCHC 31.7 G/DL (30.0-36.0); MCV 88.3 FL (83-99); MONOCYTE (%) 15.6 % (3-12); MONOCYTE COUNT 0.5 K/uL (0-0.8); NEUTROPHIL (%) 67.3 % (45-76); NEUTROPHIL COUNT 2.3 K/uL (1.8-6.4); PLATELET COUNT 180 K/uL (156-360); RBC DIS.WIDTH-CV 16.6 % (11.8-14.6); RBC DIS.WIDTH-SD 53.6 % (39-53); RED BLOOD COUNT 3.15 M/uL (3.80-5.20); WHITE BLOOD COUNT 3.5 K/uL (4.1-10.2)
[2017-09-23 06:08] LABS: INTER. NORMALIZED RATIO 1.7
[2017-09-23 06:36] LABS: ALBUMIN 2.2 G/DL (3.2-4.8); ALKALINE PHOSPHATASE 132 IU/L (3-129); AST (GOT) 12 IU/L (2-34); CHLORIDE 96 MEQ/L (99-109); CREATININE 3.9 MG/DL (0.6-1.3); GFR ESTIMATE (CALCULATED) 12 mL/min/; SODIUM 127 MEQ/L (136-147); TOTAL BILIRUBIN 0.6 MG/DL (0.0-1.0); TOTAL PROTEIN 6.5 G/DL (6.4-8.3); UREA NITROGEN (BUN) 75 mg/dL (9-23)
[2017-09-23 06:45] LABS: ALT (GPT) < 3 IU/L (3-49); GLUCOSE 84 mg/dL (70-99)
[2017-09-23 09:00] VITALS: BP 133/60
[2017-09-23 12:00] VITALS: BP 143/87
[2017-09-23 13:10] LABS: STOOL OCCULT BLD 1ST SPECIMEN NEGATIVE
[2017-09-23 16:00] VITALS: BP 138/64
[2017-09-23 20:54] VITALS: BP 138/86
[2017-09-23 23:59] VITALS: BP 138/88
[2017-09-24 04:15] VITALS: BP 148/66
[2017-09-24 05:34] LABS: BASOPHIL (%) 0.6 % (0-1); EOSINOPHIL (%) 1.9 % (0-5); EOSINOPHIL COUNT 0.1 K/uL (0-0.3); HEMATOCRIT 27.6 % (36.0-46.0); HEMOGLOBIN 8.9 G/DL (11.9-15.5); IMMATURE GRANULOCYTE (%) 0.3 % (0.0-0.7); LYMPHOCYTE (%) 14.8 % (15-42); LYMPHOCYTE COUNT 0.5 K/uL (1.0-2.8); MCH 28.7 PG (29.0-34.0); MCHC 32.2 G/DL (30.0-36.0); MONOCYTE (%) 11.4 % (3-12); MONOCYTE COUNT 0.4 K/uL (0-0.8); NEUTROPHIL COUNT 2.6 K/uL (1.8-6.4); PLATELET COUNT 158 K/uL (156-360); RBC DIS.WIDTH-CV 16.8 % (11.8-14.6); RBC DIS.WIDTH-SD 54.5 % (39-53); WHITE BLOOD COUNT 3.6 K/uL (4.1-10.2)
[2017-09-24 05:47] LABS: INTER. NORMALIZED RATIO 3.6
[2017-09-24 05:55] LABS: ALBUMIN 2.3 G/DL (3.2-4.8); CHLORIDE 96 MEQ/L (99-109); CREATININE 4.1 MG/DL (0.6-1.3); GFR ESTIMATE (CALCULATED) 11 mL/min/; GLUCOSE 95 mg/dL (70-99); PHOSPHORUS 6.8 mg/dL (2.5-4.9); POTASSIUM 4.7 MEQ/L (3.7-5.4); SODIUM 125 MEQ/L (136-147); UREA NITROGEN (BUN) 75 mg/dL (9-23); URIC ACID 9.6 mg/dL (3.1-9.2)
[2017-09-24 08:39] VITALS: BP 150/76
[2017-09-24 11:14] VITALS: BP 145/71
[2017-09-24 16:18] VITALS: BP 158/81
[2017-09-24 20:03] VITALS: BP 143/68
[2017-09-24 22:25] VITALS: BP 152/70
[2017-09-25 04:23] VITALS: BP 142/70
[2017-09-25 04:38] LABS: BASOPHIL (%) 0.7 % (0-1); EOSINOPHIL (%) 2.4 % (0-5); EOSINOPHIL COUNT 0.1 K/uL (0-0.3); HEMOGLOBIN 8.7 G/DL (11.9-15.5); IMMATURE GRANULOCYTE (%) 0.3 % (0.0-0.7); LYMPHOCYTE (%) 19.8 % (15-42); LYMPHOCYTE COUNT 0.6 K/uL (1.0-2.8); MCH 28.7 PG (29.0-34.0); MCHC 32.2 G/DL (30.0-36.0); MCV 89.1 FL (83-99); MONOCYTE (%) 14.6 % (3-12); MONOCYTE COUNT 0.4 K/uL (0-0.8); NEUTROPHIL (%) 62.2 % (45-76); NEUTROPHIL COUNT 1.8 K/uL (1.8-6.4); PLATELET COUNT 147 K/uL (156-360); RBC DIS.WIDTH-CV 16.8 % (11.8-14.6); RBC DIS.WIDTH-SD 55.4 % (39-53); RED BLOOD COUNT 3.03 M/uL (3.80-5.20); WHITE BLOOD COUNT 2.9 K/uL (4.1-10.2)
[2017-09-25 04:53] LABS: ALBUMIN 2.3 g/dL (3.2-4.8)
[2017-09-25 04:54] LABS: CHLORIDE 97 mEq/L (99-109); SODIUM 126 mEq/L (136-147)
[2017-09-25 04:56] LABS: GLUCOSE 73 mg/dL (70-99); INTER. NORMALIZED RATIO 7.8
[2017-09-25 04:59] LABS: PHOSPHORUS 6.9 mg/dL (2.5-4.9)
[2017-09-25 05:00] LABS: CREATININE 4.5 mg/dL (0.6-1.3); GFR ESTIMATE (CALCULATED) 10 mL/min/
[2017-09-25 05:01] LABS: UREA NITROGEN (BUN) 84 mg/dL (9-23)
[2017-09-25 09:20] VITALS: BP 153/69
[2017-09-25 11:53] VITALS: BP 143/72
[2017-09-25 12:18] LABS: APPEARANCE CLOUDY ((CLEAR)); BILIRUBIN NEGATIVE; BLOOD LARGE; COLOR AMBER ((YELLOW)); GLUCOSE (STRIP) NEGATIVE; KETONES NEGATIVE; LEUKOCYTES LARGE; NITRITE NEGATIVE; PROTEIN (STRIP) 100; SPECIFIC GRAVITY 1.016 (1.000-1.030); UROBILINOGEN 0.2 MG/DL (0.2-1.0)
[2017-09-25 12:36] LABS: RED BLOOD CELLS 40-50 /HPF (0-5); WHITE BLOOD CELLS 40-50 /HPF (0-5)
[2017-09-25 12:37] LABS: BACTERIA 2+ /HPF; EPITHELIAL CELLS 1+ /HPF; MUCUS 1+ /LPF
[2017-09-25 12:38] LABS: AMORPHOUS URATES CRYSTALS 1+; OTHER BUDDING YEAST 1+
[2017-09-25 14:18] LABS: EOSINOPHILS,URINE NONE SEEN
[2017-09-25 16:47] VITALS: BP 152/76
[2017-09-25 19:10] VITALS: BP 159/72
[2017-09-25 23:55] VITALS: BP 162/71
[2017-09-26 04:11] VITALS: BP 163/85
[2017-09-26 05:10] LABS: ALBUMIN 2.3 g/dL (3.2-4.8); CHLORIDE 95 mEq/L (99-109); POTASSIUM 5.4 mEq/L (3.7-5.4); SODIUM 127 mEq/L (136-147)
[2017-09-26 05:12] LABS: GLUCOSE 107 mg/dL (70-99)
[2017-09-26 05:16] LABS: CREATININE 4.7 mg/dL (0.6-1.3); GFR ESTIMATE (CALCULATED) 10 mL/min/; PHOSPHORUS 6.9 mg/dL (2.5-4.9)
[2017-09-26 05:17] LABS: UREA NITROGEN (BUN) 86 mg/dL (9-23)
[2017-09-26 07:16] VITALS: BP 163/86
[2017-09-26 11:23] VITALS: BP 138/65
[2017-09-26 14:57] VITALS: BP 142/83
[2017-09-26 20:37] VITALS: BP 141/65
[2017-09-26 23:37] VITALS: BP 140/62
[2017-09-27 03:50] VITALS: BP 145/82
[2017-09-27 06:45] LABS: ALBUMIN 2.1 G/DL (3.2-4.8); CHLORIDE 93 MEQ/L (99-109); CREATININE 4.4 MG/DL (0.6-1.3); GFR ESTIMATE (CALCULATED) 10 mL/min/; GLUCOSE 98 mg/dL (70-99); PHOSPHORUS 6.6 mg/dL (2.5-4.9); POTASSIUM 5.3 MEQ/L (3.7-5.4); SODIUM 124 MEQ/L (136-147); UREA NITROGEN (BUN) 85 mg/dL (9-23)
[2017-09-27 08:40] VITALS: BP 158/72
[2017-09-27 09:24] LABS: BASOPHIL (%) 0.9 % (0-1); EOSINOPHIL (%) 2.6 % (0-5); EOSINOPHIL COUNT 0.1 K/uL (0-0.3); HEMOGLOBIN 9.1 G/DL (11.9-15.5); IMMATURE GRANULOCYTE (%) 0.6 % (0.0-0.7); LYMPHOCYTE COUNT 0.4 K/uL (1.0-2.8); MCH 27.9 PG (29.0-34.0); MCHC 31.4 G/DL (30.0-36.0); MONOCYTE (%) 11.7 % (3-12); MONOCYTE COUNT 0.4 K/uL (0-0.8); NEUTROPHIL (%) 72.2 % (45-76); NEUTROPHIL COUNT 2.5 K/uL (1.8-6.4); PLATELET COUNT 146 K/uL (156-360); RBC DIS.WIDTH-CV 16.7 % (11.8-14.6); RBC DIS.WIDTH-SD 54.9 % (39-53); RED BLOOD COUNT 3.26 M/uL (3.80-5.20); WHITE BLOOD COUNT 3.5 K/uL (4.1-10.2)
[2017-09-27 10:27] LABS: HEPATITIS B SURFACE ANTIGEN Nonreactive
[2017-09-27 10:28] LABS: HEPATITIS B SURFACE ANTIBODY Nonreactive; HEPATITIS C ANTIBODY Nonreactive
[2017-09-27 11:47] LABS: ANTI-HEPATITIS B CORE (TOTAL) Nonreactive
[2017-09-27 11:59] VITALS: BP 139/68
[2017-09-27 16:20] VITALS: BP 97/56
[2017-09-27 20:33] VITALS: BP 153/71
[2017-09-27 22:29] VITALS: BP 164/70
[2017-09-28 04:24] VITALS: BP 136/74
[2017-09-28 08:26] VITALS: BP 141/78
[2017-09-28 12:26] LABS: BASOPHIL (%) 0.6 % (0-1); EOSINOPHIL (%) 1.9 % (0-5); EOSINOPHIL COUNT 0.1 K/uL (0-0.3); HEMATOCRIT 29.2 % (36.0-46.0); HEMOGLOBIN 9.2 G/DL (11.9-15.5); IMMATURE GRANULOCYTE (%) 0.3 % (0.0-0.7); LYMPHOCYTE (%) 12.7 % (15-42); LYMPHOCYTE COUNT 0.4 K/uL (1.0-2.8); MCH 27.8 PG (29.0-34.0); MCHC 31.5 G/DL (30.0-36.0); MCV 88.2 FL (83-99); MONOCYTE (%) 11.4 % (3-12); MONOCYTE COUNT 0.4 K/uL (0-0.8); NEUTROPHIL (%) 73.1 % (45-76); NEUTROPHIL COUNT 2.3 K/uL (1.8-6.4); PLATELET COUNT 142 K/uL (156-360); RBC DIS.WIDTH-CV 16.7 % (11.8-14.6); RBC DIS.WIDTH-SD 54.4 % (39-53); RED BLOOD COUNT 3.31 M/uL (3.80-5.20); WHITE BLOOD COUNT 3.1 K/uL (4.1-10.2)
[2017-09-28 12:33] LABS: INTER. NORMALIZED RATIO 2.7
[2017-09-28 12:56] LABS: ALBUMIN 2.3 G/DL (3.2-4.8); CHLORIDE 94 MEQ/L (99-109); CREATININE 4.1 MG/DL (0.6-1.3); GFR ESTIMATE (CALCULATED) 11 mL/min/; GLUCOSE 72 mg/dL (70-99); PHOSPHORUS 5.4 mg/dL (2.5-4.9); POTASSIUM 5.3 MEQ/L (3.7-5.4); SODIUM 126 MEQ/L (136-147); UREA NITROGEN (BUN) 64 mg/dL (9-23)
[2017-09-28 15:52] VITALS: BP 158/89
[2017-09-28 22:31] VITALS: BP 138/68
[2017-09-29 03:18] VITALS: BP 152/69
[2017-09-29 06:15] LABS: ALBUMIN 2.2 G/DL (3.2-4.8); CHLORIDE 94 MEQ/L (99-109); CREATININE 3.4 MG/DL (0.6-1.3); GFR ESTIMATE (CALCULATED) 14 mL/min/; GLUCOSE 96 mg/dL (70-99); PHOSPHORUS 4.4 mg/dL (2.5-4.9); SODIUM 130 MEQ/L (136-147); UREA NITROGEN (BUN) 46 mg/dL (9-23)
[2017-09-29 06:29] LABS: INTER. NORMALIZED RATIO 2.5
[2017-09-29 07:48] VITALS: BP 136/73
[2017-09-29 12:16] VITALS: BP 115/57
[2017-09-29 16:39] VITALS: BP 147/86
[2017-09-29 21:01] VITALS: BP 142/70
[2017-09-29 23:27] VITALS: BP 146/84
[2017-09-30 03:37] VITALS: BP 153/90
[2017-09-30 06:25] LABS: ALBUMIN 2.4 G/DL (3.2-4.8); CHLORIDE 95 MEQ/L (99-109); CREATININE 3.8 MG/DL (0.6-1.3); GFR ESTIMATE (CALCULATED) 12 mL/min/; GLUCOSE 92 mg/dL (70-99); PHOSPHORUS 4.7 mg/dL (2.5-4.9); SODIUM 128 MEQ/L (136-147); UREA NITROGEN (BUN) 50 mg/dL (9-23)
[2017-09-30 09:05] VITALS: BP 147/89
[2017-09-30 12:42] LABS: BASOPHIL (%) 0.6 % (0-1); EOSINOPHIL (%) 2.1 % (0-5); EOSINOPHIL COUNT 0.1 K/uL (0-0.3); HEMOGLOBIN 8.7 G/DL (11.9-15.5); IMMATURE GRANULOCYTE (%) 0.9 % (0.0-0.7); LYMPHOCYTE (%) 10.3 % (15-42); LYMPHOCYTE COUNT 0.4 K/uL (1.0-2.8); MCH 27.8 PG (29.0-34.0); MCHC 31.1 G/DL (30.0-36.0); MCV 89.5 FL (83-99); MONOCYTE (%) 12.4 % (3-12); MONOCYTE COUNT 0.4 K/uL (0-0.8); NEUTROPHIL (%) 73.7 % (45-76); NEUTROPHIL COUNT 2.5 K/uL (1.8-6.4); PLATELET COUNT 124 K/uL (156-360); RBC DIS.WIDTH-CV 17.1 % (11.8-14.6); RBC DIS.WIDTH-SD 55.8 % (39-53); RED BLOOD COUNT 3.13 M/uL (3.80-5.20); WHITE BLOOD COUNT 3.4 K/uL (4.1-10.2)
[2017-09-30 16:05] VITALS: BP 176/76
[2017-09-30 20:35] VITALS: BP 178/110
[2017-09-30 22:16] VITALS: BP 186/79
[2017-10-01] VITALS: BP 162/80
[2017-10-01 04:14] VITALS: BP 162/88
[2017-10-01 05:16] LABS: INTER. NORMALIZED RATIO 1.8
[2017-10-01 05:59] LABS: ALBUMIN 2.2 G/DL (3.2-4.8); CHLORIDE 97 MEQ/L (99-109); GFR ESTIMATE (CALCULATED) 17 mL/min/; GLUCOSE 114 mg/dL (70-99); PHOSPHORUS 3.7 mg/dL (2.5-4.9); POTASSIUM 4.3 MEQ/L (3.7-5.4); SODIUM 130 MEQ/L (136-147); UREA NITROGEN (BUN) 31 mg/dL (9-23)
[2017-10-01 06:02] LABS: CREATININE 2.9 MG/DL (0.6-1.3)
[2017-10-01 07:46] VITALS: BP 162/78
[2017-10-01 17:01] VITALS: BP 160/76
[2017-10-01 19:56] VITALS: BP 176/82
[2017-10-01 23:12] VITALS: BP 168/88
[2017-10-02 04:28] VITALS: BP 178/92
[2017-10-02 05:43] LABS: INTER. NORMALIZED RATIO 1.8
[2017-10-02 05:51] LABS: ALBUMIN 2.2 G/DL (3.2-4.8); C-REACTIVE PROTEIN 38.8 MG/L (0-10); CHLORIDE 96 MEQ/L (99-109); GFR ESTIMATE (CALCULATED) 14 mL/min/; GLUCOSE 114 mg/dL (70-99); PHOSPHORUS 3.9 mg/dL (2.5-4.9); POTASSIUM 4.7 MEQ/L (3.7-5.4); SODIUM 128 MEQ/L (136-147); UREA NITROGEN (BUN) 36 mg/dL (9-23)
[2017-10-02 05:52] LABS: CREATININE 3.4 MG/DL (0.6-1.3)
[2017-10-02 08:29] VITALS: BP 179/94
[2017-10-02 12:00] VITALS: BP 174/82
[2017-10-02 15:44] VITALS: BP 196/96
[2017-10-02 18:38] LABS: IRON 38 MCG/DL (35-150); TRANSFERRIN (TIBC) 146.2 mg/dL (215-380); TRANSFERRIN SATUR. 26 % (20-55)
[2017-10-02 19:12] VITALS: BP 162/82
[2017-10-02 23:32] VITALS: BP 160/68
[2017-10-03 03:41] VITALS: BP 160/78
[2017-10-03 05:42] LABS: HEMATOCRIT 26.7 % (36.0-46.0); HEMOGLOBIN 8.4 G/DL (11.9-15.5); MCH 28.3 PG (29.0-34.0); MCHC 31.5 G/DL (30.0-36.0); MCV 89.9 FL (83-99); PLATELET COUNT 114 K/uL (156-360); RBC DIS.WIDTH-CV 17.2 % (11.8-14.6); RBC DIS.WIDTH-SD 56.3 % (39-53); RED BLOOD COUNT 2.97 M/uL (3.80-5.20); WHITE BLOOD COUNT 3.5 K/uL (4.1-10.2)
[2017-10-03 06:10] LABS: ALBUMIN 2.2 G/DL (3.2-4.8); CHLORIDE 96 MEQ/L (99-109); CREATININE 2.5 MG/DL (0.6-1.3); GFR ESTIMATE (CALCULATED) 20 mL/min/; GLUCOSE 96 mg/dL (70-99); PHOSPHORUS 3.1 mg/dL (2.5-4.9); POTASSIUM 4.1 MEQ/L (3.7-5.4); SODIUM 131 MEQ/L (136-147); UREA NITROGEN (BUN) 24 mg/dL (9-23)
[2017-10-03 06:14] LABS: INTER. NORMALIZED RATIO 2.1
[2017-10-03 09:04] VITALS: BP 105/60
[2017-10-03 11:45] VITALS: BP 168/75
[2017-10-03 15:30] VITALS: BP 148/72
[2017-10-03 20:12] VITALS: BP 150/78
[2017-10-04 04:10] VITALS: BP 154/68
[2017-10-04 06:00] LABS: INTER. NORMALIZED RATIO 1.9
[2017-10-04 06:09] LABS: ALBUMIN 2.2 G/DL (3.2-4.8); CHLORIDE 97 MEQ/L (99-109); GFR ESTIMATE (CALCULATED) 16 mL/min/; GLUCOSE 100 mg/dL (70-99); PHOSPHORUS 3.7 mg/dL (2.5-4.9); POTASSIUM 4.5 MEQ/L (3.7-5.4); SODIUM 129 MEQ/L (136-147); UREA NITROGEN (BUN) 29 mg/dL (9-23)
[2017-10-04 08:05] VITALS: BP 192/77
[2017-10-04 11:30] VITALS: BP 154/67
[2017-10-04 16:17] VITALS: BP 164/77
[2017-10-04 19:40] VITALS: BP 158/80
[2017-10-04 21:19] LABS: APPEARANCE TURBID ((CLEAR)); BILIRUBIN NEGATIVE; BLOOD LARGE; COLOR YELLOW ((YELLOW)); GLUCOSE (STRIP) NEGATIVE; KETONES NEGATIVE; LEUKOCYTES MODERATE; NITRITE NEGATIVE; PROTEIN (STRIP) 100; SPECIFIC GRAVITY 1.016 (1.000-1.030); UROBILINOGEN 0.2 MG/DL (0.2-1.0)
[2017-10-04 21:40] LABS: EPITHELIAL CELLS RARE /HPF; MUCUS NONE SEEN /LPF; UR CREATININE CONCENTRATION 120.1 MG/DL
[2017-10-04 21:41] LABS: COARSE GRANULAR CASTS 0-5 /LPF
[2017-10-04 21:42] LABS: WHITE BLOOD CELLS 0-5 /HPF (0-5)
[2017-10-04 21:43] LABS: BACTERIA RARE /HPF
[2017-10-04 23:17] VITALS: BP 140/72
[2017-10-05 04:25] VITALS: BP 142/64
[2017-10-05 06:29] LABS: HEMATOCRIT 27.1 % (36.0-46.0); HEMOGLOBIN 8.4 G/DL (11.9-15.5); MCH 27.9 PG (29.0-34.0); PLATELET COUNT 117 K/uL (156-360); RBC DIS.WIDTH-CV 17.2 % (11.8-14.6); RBC DIS.WIDTH-SD 56.1 % (39-53); RED BLOOD COUNT 3.01 M/uL (3.80-5.20); WHITE BLOOD COUNT 3.6 K/uL (4.1-10.2)
[2017-10-05 06:37] LABS: INTER. NORMALIZED RATIO 1.8
[2017-10-05 07:04] LABS: ALBUMIN 2.3 G/DL (3.2-4.8); CHLORIDE 94 MEQ/L (99-109); CREATININE 3.4 MG/DL (0.6-1.3); GFR ESTIMATE (CALCULATED) 14 mL/min/; GLUCOSE 77 mg/dL (70-99); POTASSIUM 4.6 MEQ/L (3.7-5.4); SODIUM 129 MEQ/L (136-147); UREA NITROGEN (BUN) 35 mg/dL (9-23)
[2017-10-05 11:44] VITALS: BP 154/86
[2017-10-05 12:16] LABS: IRON 31 MCG/DL (35-150); TRANSFERRIN (TIBC) 154.2 mg/dL (215-380); TRANSFERRIN SATUR. 20 % (20-55)
[2017-10-05 16:31] VITALS: BP 176/79
[2017-10-05 17:19] VITALS: BP 144/64
[2017-10-05 19:56] VITALS: BP 124/60
[2017-10-05 23:49] VITALS: BP 140/60
[2017-10-06 04:52] VITALS: BP 142/98
[2017-10-06 05:29] LABS: INTER. NORMALIZED RATIO 1.7
[2017-10-06 05:54] LABS: ALBUMIN 2.2 G/DL (3.2-4.8); CHLORIDE 96 MEQ/L (99-109); CREATININE 2.7 MG/DL (0.6-1.3); GFR ESTIMATE (CALCULATED) 18 mL/min/; GLUCOSE 79 mg/dL (70-99); PHOSPHORUS 3.6 mg/dL (2.5-4.9); POTASSIUM 5.1 MEQ/L (3.7-5.4); SODIUM 130 MEQ/L (136-147); UREA NITROGEN (BUN) 27 mg/dL (9-23)
[2017-10-06 07:41] VITALS: BP 146/67
[2017-10-06 11:40] VITALS: BP 170/62
[2017-10-06 16:26] VITALS: BP 140/60
[2017-10-06 20:08] VITALS: BP 166/99
[2017-10-06 23:50] VITALS: BP 133/76
[2017-10-07 04:07] VITALS: BP 139/74
[2017-10-07 07:00] LABS: INTER. NORMALIZED RATIO 1.9
[2017-10-07 07:19] LABS: ALBUMIN 2.2 G/DL (3.2-4.8); CHLORIDE 97 MEQ/L (99-109); GFR ESTIMATE (CALCULATED) 15 mL/min/; GLUCOSE 72 mg/dL (70-99); POTASSIUM 4.8 MEQ/L (3.7-5.4); SODIUM 133 MEQ/L (136-147); UREA NITROGEN (BUN) 33 mg/dL (9-23)
[2017-10-07 07:27] LABS: CREATININE 3.2 MG/DL (0.6-1.3)
[2017-10-07 08:30] VITALS: BP 158/66
[2017-10-07 11:20] VITALS: BP 152/60
[2017-10-07 15:34] VITALS: BP 141/66
[2017-10-07 19:58] VITALS: BP 182/89
[2017-10-07 23:25] VITALS: BP 178/76
[2017-10-08] VITALS (7 sets, daily range): BP systolic 133–182; BP diastolic 64–89
[2017-10-08 06:09] LABS: INTER. NORMALIZED RATIO 2.2
[2017-10-08 11:52] LABS: ALBUMIN 2.3 G/DL (3.2-4.8); CHLORIDE 99 MEQ/L (99-109); POTASSIUM 4.9 MEQ/L (3.7-5.4); SODIUM 132 MEQ/L (136-147)
[2017-10-08 12:01] LABS: CREATININE 3.6 MG/DL (0.6-1.3); GFR ESTIMATE (CALCULATED) 13 mL/min/; PHOSPHORUS 4.4 mg/dL (2.5-4.9); UREA NITROGEN (BUN) 37 mg/dL (9-23)
[2017-10-08 12:04] LABS: EOSINOPHIL (%) 1.4 % (0-5); HEMATOCRIT 30.8 % (36.0-46.0); HEMOGLOBIN 9.6 G/DL (11.9-15.5); IMMATURE GRANULOCYTE (%) 0.3 % (0.0-0.7); LYMPHOCYTE (%) 17.6 % (15-42); LYMPHOCYTE COUNT 0.5 K/uL (1.0-2.8); MCH 28.7 PG (29.0-34.0); MCHC 31.2 G/DL (30.0-36.0); MCV 92.2 FL (83-99); MONOCYTE (%) 13.9 % (3-12); MONOCYTE COUNT 0.4 K/uL (0-0.8); NEUTROPHIL (%) 65.8 % (45-76); PLATELET COUNT 99 K/uL (156-360); RBC DIS.WIDTH-CV 18.1 % (11.8-14.6); RBC DIS.WIDTH-SD 61.2 % (39-53); RED BLOOD COUNT 3.34 M/uL (3.80-5.20)
[2017-10-08 12:29] LABS: GLUCOSE 99 mg/dL (70-99)
[2017-10-09 04:36] VITALS: BP 145/65
[2017-10-09 09:15] VITALS: BP 135/77
[2017-10-09] MEDS ORDERED: DOXYCYCLINE HY100 M3 PO (13:21)
[2017-10-09] MEDS ORDERED: AMLODIPINE BESYL5 MG PO (13:22)
[2017-10-09] MEDS ORDERED: ARANESP100 MCG/0. SC (13:22)
[2017-10-09] MEDS ORDERED: CARVEDILOL6.25 MG PO (13:22)
[2017-10-09] MEDS ORDERED: FAMOTIDINE20 MG PO (13:23)
[2017-10-09] MEDS ORDERED: HYDROCODON-ACE1 EAC7 PO (13:24)
[2017-10-09] MEDS ORDERED: LORAZEPAM0.5 MG PO (13:24)
[2017-10-09 13:35] VITALS: BP 111/55
[2017-10-09] MEDS ORDERED: COUMADIN1 MG PO (13:36)
[2017-10-09 16:26] VITALS: BP 141/93
== END 2017-10-09 18:55 | DRG 682 ==
LOC: EME → EDBD 20:54 → EME 20:54 → 4EAST 22:37 → 3EAST 22:37 → EDOF 22:37 → ENRESERV 22:40 → 4EAST 09-21 00:29 → ENRESERV 09-30 18:23 → 3EAST 09-30 22:04
PROVIDERS: Family Medicine; Internal Medicine; Internal Medicine Cardiovascular Disease; Internal Medicine Nephrology
PROC: 30233N1 Transfusion of Nonautologous Red Blood Cells into Peripheral Vein, Percutaneous Approach (ICD-10-PCS; principal; 2017-09-21)
PROC: 5A1D70Z Performance of Urinary Filtration, Intermittent, Less than 6 Hours Per Day (ICD-10-PCS; 2017-09-27)
PROC: 02HV33Z Insertion of Infusion Device into Superior Vena Cava, Percutaneous Approach (ICD-10-PCS; 2017-09-27)
PROC: 02HV33Z Insertion of Infusion Device into Superior Vena Cava, Percutaneous Approach (ICD-10-PCS; 2017-10-07)
DX: N17.0 Acute kidney failure with tubular necrosis (principal); E87.5 Hyperkalemia; M00.9 Pyogenic arthritis, unspecified; D61.818 Other pancytopenia; G93.41 Metabolic encephalopathy; E11.649 Type 2 diabetes mellitus with hypoglycemia without coma; I13.2 Hypertensive heart and chronic kidney disease with heart failure and with stage 5 chronic kidney disease, or end stage renal disease; I50.30 Unspecified diastolic (congestive) heart failure; N18.6 End stage renal disease; N10 Acute pyelonephritis; E86.0 Dehydration; E87.2 Acidosis; E86.1 Hypovolemia; E87.1 Hypo-osmolality and hyponatremia; E83.39 Other disorders of phosphorus metabolism; I27.20 Pulmonary hypertension, unspecified; I48.2 Chronic atrial fibrillation; D63.1 Anemia in chronic kidney disease; E11.22 Type 2 diabetes mellitus with diabetic chronic kidney disease; I83.018 Varicose veins of right lower extremity with ulcer other part of lower leg; L97.818 Non-pressure chronic ulcer of other part of right lower leg with other specified severity; E78.5 Hyperlipidemia, unspecified; F41.9 Anxiety disorder, unspecified; I08.1 Rheumatic disorders of both mitral and tricuspid valves; I87.8 Other specified disorders of veins; M06.9 Rheumatoid arthritis, unspecified; E66.01 Morbid (severe) obesity due to excess calories; Z68.42 Body mass index [BMI] 45.0-49.9, adult; Z79.4 Long term (current) use of insulin; Z79.01 Long term (current) use of anticoagulants; Z86.73 Personal history of transient ischemic attack (TIA), and cerebral infarction without residual deficits
CPT/HCPCS: 71045; 76770; 80048; 80053; 80069; 81003; 82272; 82570; 82948; 83540; 83735; 83880; 83935; 84132; 84132 91; 84156; 84300; 84466; 84484; 84550; 85014; 85018; 85025; 85025 91; 85027; 85610; 85651; 85652; 86140; 86704; 86706; 86803; 86850; 86900; 86901; 86920; 87086; 87340; 87493; 87641; 89190; 93005; 94799; 97530 GO; 97530 GP; 99281; 99285; C1751; C1752; C1769; C1788; J0610; J0690; J0881; J1644; J1756; J1815; J1940; J2405; J7030; J7050; P9016

== ENCOUNTER 2017-12-11 11:02 | Day surgery (SDC) | payer OTHER, BC ==
[~2017-12-11] VITALS: Ht 165.1 cm; Wt 103.9 kg
[~2017-12-11 11:02] MED LIST changes: +ARANESP100 MCG/0. SC; +ARTIFICIAL TEAR15 M1 BOTH EYES; +ATROVENT 00.5 MG/2.5 IH; +CARVEDILOL6.25 MG PO; +COUMADIN1 MG PO; +COUMADIN3 MG PO; +DOXYCYCLINE HY100 M3 PO; +DULCOLAX10 MG PR; +FAMOTIDINE20 MG PO; +FLEET ENEMA-AD118 ML PR; +LORAZEPAM0.5 MG PO; +MELATONIN5 M1 PO; +NOVOLOG PE100 UNITS/ SC; +PHILLIPS'400 MG/5 M PO; +ROBAFEN CF SYR118 M1 PO; +SALINE NOSE SPR45 M1 BOTH NARES; +ZOLOFT25 MG PO
[2017-12-11 11:15] VITALS: BP 136/70
[2017-12-11 11:31] LABS: HEMATOCRIT 36.6 % (36.0-46.0); MCH 28.5 PG (29.0-34.0); MCHC 30.3 G/DL (30.0-36.0); MCV 94.1 FL (83-99); RBC DIS.WIDTH-CV 16.7 % (11.8-14.6); RBC DIS.WIDTH-SD 57.4 % (39-53)
[2017-12-11 11:35] LABS: HEMOGLOBIN 11.1 G/DL (11.9-15.5); PLATELET COUNT 212 K/uL (156-360); RED BLOOD COUNT 3.89 M/uL (3.80-5.20)
[2017-12-11 11:45] LABS: INTER. NORMALIZED RATIO 1.8
[2017-12-11 11:48] LABS: PTT 36.2 SEC (25-37)
[2017-12-11 12:15] LABS: CHLORIDE 96 mEq/L (99-109); POTASSIUM 4.7 mEq/L (3.7-5.4); SODIUM 137 mEq/L (136-147)
[2017-12-11 12:16] LABS: GLUCOSE 82 mg/dL (70-99)
[2017-12-11 12:20] LABS: CREATININE 4.4 mg/dL (0.6-1.3); GFR ESTIMATE (CALCULATED) 10 mL/min/
[2017-12-11 12:21] LABS: UREA NITROGEN (BUN) 21 mg/dL (9-23)
[2017-12-11] MEDS ORDERED: NORCO 5/3251 TABLET PO (17:08)
[2017-12-11 18:00] VITALS: BP 140/65
[2017-12-11 19:00] VITALS: BP 135/63
== END 2017-12-11 19:45 | disposition home or self-care (01) ==
LOC: SDC 11:02
PROVIDERS: Surgery
PROC: 3E03317 Introduction of Other Thrombolytic into Peripheral Vein, Percutaneous Approach (ICD-10-PCS; principal; 2017-12-11)
PROC: 05BF0ZZ Excision of Left Cephalic Vein, Open Approach (ICD-10-PCS; principal; 2017-12-11)
PROC: 031809D Bypass Left Brachial Artery to Upper Arm Vein with Autologous Venous Tissue, Open Approach (ICD-10-PCS; principal; 2017-12-11)
DX: I12.0 Hypertensive chronic kidney disease with stage 5 chronic kidney disease or end stage renal disease (principal); E11.22 Type 2 diabetes mellitus with diabetic chronic kidney disease; N18.6 End stage renal disease; Z99.2 Dependence on renal dialysis; Z79.4 Long term (current) use of insulin; E78.5 Hyperlipidemia, unspecified; Z86.73 Personal history of transient ischemic attack (TIA), and cerebral infarction without residual deficits; M06.9 Rheumatoid arthritis, unspecified; I25.10 Atherosclerotic heart disease of native coronary artery without angina pectoris; I48.91 Unspecified atrial fibrillation; Z79.01 Long term (current) use of anticoagulants; E66.9 Obesity, unspecified; Z68.38 Body mass index [BMI] 38.0-38.9, adult
CPT/HCPCS: 80048; 80048 91; 82948; 85027; 85610; 85730; 87641; J0131; J0690; J1644; J3010

== ENCOUNTER 2018-02-05 07:44 | Day surgery (SDC) | payer OTHER, BC ==
[~2018-02-05] VITALS: Ht 165.1 cm; Wt 89.8 kg
[~2018-02-05 07:44] MED LIST changes: +COUGH SYRU100 MG/5 M PO; +MIRALAX17 GM PO; +NORCO 5/3251 TABLET PO; +REQUIP0.25 MG PO
[2018-02-05 08:19] VITALS: BP 113/58
[2018-02-05 08:22] LABS: HEMATOCRIT 39.3 % (36.0-46.0); HEMOGLOBIN 12.7 G/DL (11.9-15.5); MCHC 32.3 G/DL (30.0-36.0); MCV 89.7 FL (83-99); RBC DIS.WIDTH-CV 14.8 % (11.8-14.6); RBC DIS.WIDTH-SD 49.5 % (39-53); RED BLOOD COUNT 4.38 M/uL (3.80-5.20); WHITE BLOOD COUNT 3.7 K/uL (4.1-10.2)
[2018-02-05 08:33] LABS: PLATELET COUNT 135 K/uL (156-360)
[2018-02-05 08:50] LABS: CHLORIDE 96 MEQ/L (99-109); CREATININE 4.7 MG/DL (0.6-1.3); GFR ESTIMATE (CALCULATED) 10 mL/min/; GLUCOSE 114 mg/dL (70-99); POTASSIUM 4.9 MEQ/L (3.7-5.4); SODIUM 137 MEQ/L (136-147); UREA NITROGEN (BUN) 29 mg/dL (9-23)
[2018-02-05 11:36] VITALS: BP 124/56
== END 2018-02-05 14:01 ==
LOC: SDC 07:44
PROVIDERS: Surgery
DX: T82.858A Stenosis of other vascular prosthetic devices, implants and grafts, initial encounter (principal); Y83.2 Surgical operation with anastomosis, bypass or graft as the cause of abnormal reaction of the patient, or of later complication, without mention of misadventure at the time of the procedure; I12.0 Hypertensive chronic kidney disease with stage 5 chronic kidney disease or end stage renal disease; E11.22 Type 2 diabetes mellitus with diabetic chronic kidney disease; N18.6 End stage renal disease; Z99.2 Dependence on renal dialysis; E78.5 Hyperlipidemia, unspecified; I25.10 Atherosclerotic heart disease of native coronary artery without angina pectoris; I48.91 Unspecified atrial fibrillation; M32.9 Systemic lupus erythematosus, unspecified; M06.9 Rheumatoid arthritis, unspecified; Z86.73 Personal history of transient ischemic attack (TIA), and cerebral infarction without residual deficits; Z79.01 Long term (current) use of anticoagulants
CPT/HCPCS: 80048; 82948; 85027; 87641; C1725; C1769; C1874; C1894; J0690; J1644; J3010

== ENCOUNTER 2018-03-01 05:28 | Day surgery (SDC) | payer OTHER, BC ==
[~2018-03-01] VITALS: Ht 165.1 cm; Wt 84.8 kg
[~2018-03-01 05:28] MED LIST changes: +FERRIC CITRATE210 MG PO; +ROPINIROLE HCL0.5 MG PO
[2018-03-01 06:10] VITALS: BP 96/62
[2018-03-01 06:31] LABS: INTER. NORMALIZED RATIO 1.4
[2018-03-01 06:43] LABS: CHLORIDE 96 mEq/L (99-109); SODIUM 138 mEq/L (136-147)
[2018-03-01 06:44] LABS: GLUCOSE 124 mg/dL (70-99)
[2018-03-01 06:48] LABS: GFR ESTIMATE (CALCULATED) 7 mL/min/
[2018-03-01 06:49] LABS: UREA NITROGEN (BUN) 33 mg/dL (9-23)
[2018-03-01 06:53] LABS: HEMATOCRIT 36.8 % (36.0-46.0); HEMOGLOBIN 11.6 G/DL (11.9-15.5); MCH 29.1 PG (29.0-34.0); MCHC 31.5 G/DL (30.0-36.0); MCV 92.2 FL (83-99); RBC DIS.WIDTH-CV 15.4 % (11.8-14.6); RBC DIS.WIDTH-SD 51.7 % (39-53); RED BLOOD COUNT 3.99 M/uL (3.80-5.20); WHITE BLOOD COUNT 4.3 K/uL (4.1-10.2)
[2018-03-01 07:09] LABS: PLAT.SUFFICIENCY DECREASED; PLATELET CLUMPS PRESENT - PLATELET COUNT APPEARS DECREASED
[2018-03-01 07:50] LABS: PLATELET COUNT UNABLE TO REPORT K/uL (156-360)
[2018-03-01 09:45] VITALS: BP 140/55
== END 2018-03-01 12:45 ==
LOC: SDC 05:28 → 2EAST 05:31 → SDC 10:53 → 2EAST 12:45
PROVIDERS: Surgery
PROC: 05HY33Z Insertion of Infusion Device into Upper Vein, Percutaneous Approach (ICD-10-PCS; principal; 2018-03-01)
PROC: 057Y3ZZ Dilation of Upper Vein, Percutaneous Approach (ICD-10-PCS; principal; 2018-03-01)
PROC: B51W1ZZ Fluoroscopy of Dialysis Shunt/Fistula using Low Osmolar Contrast (ICD-10-PCS; principal; 2018-03-01)
PROC: 3E03317 Introduction of Other Thrombolytic into Peripheral Vein, Percutaneous Approach (ICD-10-PCS; principal; 2018-03-01)
DX: T82.858A Stenosis of other vascular prosthetic devices, implants and grafts, initial encounter (principal); Y83.2 Surgical operation with anastomosis, bypass or graft as the cause of abnormal reaction of the patient, or of later complication, without mention of misadventure at the time of the procedure; I12.0 Hypertensive chronic kidney disease with stage 5 chronic kidney disease or end stage renal disease; E11.22 Type 2 diabetes mellitus with diabetic chronic kidney disease; N18.6 End stage renal disease; Z99.2 Dependence on renal dialysis; Z79.4 Long term (current) use of insulin; E78.5 Hyperlipidemia, unspecified; Z86.73 Personal history of transient ischemic attack (TIA), and cerebral infarction without residual deficits; M06.9 Rheumatoid arthritis, unspecified; I25.10 Atherosclerotic heart disease of native coronary artery without angina pectoris; I48.91 Unspecified atrial fibrillation; Z79.01 Long term (current) use of anticoagulants
CPT/HCPCS: 80048; 82948; 85027; 85610; C1725; C1769; C1894; G0378; J0171; J0461; J0690; J1644; J3010